=== PATIENT | female | born 1940 | race Caucasian/White ===

== ENCOUNTER → 2018-01-07 15:28 | Outpatient (CLI) | payer MEDICARE, SELFPAY ==
[2018-01-07 16:40] LABS: Hematocrit 40.1 % (36-46); Hemoglobin 13.9 g/dL (12.0-16.0)
[2018-01-07 16:51] LABS: BUN Creatinine Ratio 26.7 (6-22); Blood Urea Nitrogen 24 mg/dL (7-17); Calcium 9.9 mg/dL (8.4-10.2); Carbon Dioxide 27 mmol/L (22-32); Chloride 100 mmol/L (98-107); Estimated Glomerular Filt Rate > 60.0 mL/min (>60); Glucose 108 mg/dL (80-110); HEMOLYSIS < 15 (0-50); Potassium 3.7 mmol/L (3.4-5.1); Sodium 141 mmol/L (137-145)
[2018-01-07 19:27] LABS: Creatinine Urine Random 37.6 mg/dL; Protein (Total) Urine Random 47 mg/dL (0-12); Protein Creatinine Ratio Urine 1.25 GRAM/24H
[2018-01-09 15:13] LABS: Parathyroid Hormone Int 49 pg/mL (14-64)
== END ==
PROVIDERS: PCP Family Medicine; Visit Provider Student in an Organized Health Care Education/Training Program
DX: N05.9 Unspecified nephritic syndrome with unspecified morphologic changes (principal); D64.9 Anemia, unspecified; N25.81 Secondary hyperparathyroidism of renal origin; R80.9 Proteinuria, unspecified
CPT/HCPCS: 36415; 80048; 82570; 83970; 84156; 85014; 85018

== ENCOUNTER → 2018-01-08 09:08 | Outpatient (CLI) | payer MEDICARE, SELFPAY ==
[2018-01-08 15:19] LABS: Bacteria Urine None Seen; RBC Urine None Seen (0-5/HPF); WBC Urine None Seen (0-5/HPF)
[2018-01-08 15:31] LABS: Appearance Urine UA CLEAR; Bilirubin Urine UA NEGATIVE (NEGATIVE); Color Urine UA YELLOW; Glucose Urine UA NEGATIVE (Normal); Ketones Urine UA NEGATIVE (NEGATIVE); Leukocyte Esterase Urine UA NEGATIVE (NEGATIVE); Nitrite Urine UA Negative (Negative); Occult Blood Urine UA NEGATIVE (Negative); Protein Urine UA 1+ (Negative); Urobilinogen Urine UA 0.2 E.U./dL (0.2); pH Urine UA 5.5 (4.5-8.0)
[2018-01-08 15:43] LABS: Culture Indicated Urine Cult Not Indicated; Urine Comments Microscopic Normal
== END ==
PROVIDERS: PCP Family Medicine; Visit Provider Family Medicine
DX: A04.72 Enterocolitis due to Clostridium difficile, not specified as recurrent (principal); Z87.440 Personal history of urinary (tract) infections
CPT/HCPCS: 81001; 87493

== ENCOUNTER → 2018-01-22 10:58 | Outpatient (CLI) | payer MEDICARE, SELFPAY | PROVIDERS: PCP Family Medicine; Visit Provider Nurse Practitioner Family | DX: R19.7 Diarrhea, unspecified (principal); Z53.9 Procedure and treatment not carried out, unspecified reason | CPT/HCPCS: 87493 ==

== ENCOUNTER → 2018-01-28 10:44 | Outpatient (CLI) | payer MEDICARE, SELFPAY ==
--- NOTE | 2018-01-28 | DI.RAD.S_ITS ---
PROCEDURE: FL BARIUM SWALLOW INDICATIONS: WITH TABLET PILL DYSPHAGIA EPIGASTRIC PAIN COMPARISON: [facility], , BARIUM SWALLOW, 08/14/2017, 14:29. FINDINGS: Function: There is normal esophageal peristalsis. No elicited gastroesophageal reflux but there was a single episode of mild spontaneous gastroesophageal reflux. There is normal transit of a calibrated barium tablet through the esophagus into the stomach. Morphology: Air-contrast images demonstrate normal mucosal morphology. Single contrast views show no esophageal strictures, extrinsic mass effects, or diverticula. Limited images of the stomach demonstrate normal appearance. Incidental note is made of several small duodenal diverticula projecting from the transverse duodenum, showing no sign of retention of debris or inflammation. IMPRESSION: Recent hiatal hernia repair, surgical clips seen at the EG junction. Mild gastroesophageal reflux was observed at one point during the examination. Incidental note is made of several duodenal diverticula projecting from the transverse duodenum, without evidence of adjacent inflammation. Dictated by: Alfredo Modi M.D. on 01/28/2018 at 13:29 Approved by: Alfredo Modi M.D. on 01/28/2018 at 13:31
== END ==
PROVIDERS: Family Provider Nurse Practitioner Family; PCP Family Medicine; Visit Provider Family Medicine
DX: R13.10 Dysphagia, unspecified (principal); K21.9 Gastro-esophageal reflux disease without esophagitis
CPT/HCPCS: 74220

== ENCOUNTER 2018-02-15 23:07 | Emergency (ER) | payer MEDICARE, SELFPAY ==
[2018-02-15 23:11] VITALS: BP 183/89; PULSE 70; RESP 16; TEMP 37; O2SAT 98; BMI 24.3
--- NOTE | 2018-02-15 23:22 | DI.RAD.S_ITS ---
PROCEDURE: XR CHEST 1V INDICATIONS: HTN TECHNIQUE: One view of the chest was acquired. COMPARISON: None. FINDINGS: Surgical changes and devices: None. Lungs and pleura: No pleural effusions or pneumothorax. Scarring/atelectasis. No acute disease. Mediastinum: Mediastinal contours appear normal. Heart size is normal. Bones and chest wall: No suspicious bony lesions. Overlying soft tissues appear unremarkable. Lateral curvature of the spine. IMPRESSION: No acute consolidation. Scattered scarring/atelectasis Dictated by: Benjamin Grant M.D. on 02/16/2018 at 8:06 Approved by: Benjamin Grant M.D. on 02/16/2018 at 8:07
[2018-02-15 23:52] LABS: Add Manual Diff / Slide Review NO; Basophils Percent Auto 0.6 % (0-2); Eosinophils Percent Auto 2.4 % (2-4); Hematocrit 37.4 % (36-46); Hemoglobin 12.9 g/dL (12.0-16.0); Lymphocytes Percent Auto 11.7 % (25-40); Mean Corpuscular HGB Conc 34.3 % (30-36); Mean Corpuscular Hemoglobin 32.4 PG (26-34); Mean Corpuscular Volume 94.3 fL (80-100); Monocytes Percent Auto 12.2 % (3-14); Neutrophils Absolute Auto 6900 /uL (3000-5900); Neutrophils Percent Auto 73.1 % (50-75); Platelet Count 242 X10^3/uL (150-400); Red Blood Cell Count 3.97 X10^6/uL (4.0-5.2); Red Cell Distribution Width 12.8 % (11.6-14.8); White Blood Cell Count 9.4 X10^3/uL (4.5-11.0)
[2018-02-15] MEDS: ASPIRIN 81 MG TAB 324 MG PO (23:54)
[2018-02-15] MEDS: SODIUM CHLORIDE 0.9% 1,000 ML 150 ML IV (23:54)
[2018-02-16] VITALS: BP 184/70; PULSE 64; RESP 13; O2SAT 98
[2018-02-16 00:01] LABS: Alanine Aminotransferase 26 IU/L (9-52); Albumin 3.9 g/dL (3.5-5.0); Albumin Globulin Ratio 1.1 (1.0-2.8); Alkaline Phosphatase 110 U/L (38-126); Aspartate Aminotransferase 26 IU/L (14-36); BUN Creatinine Ratio 21.1 (6-22); Bilirubin Total 0.5 mg/dL (0.2-1.3); Blood Urea Nitrogen 19 mg/dL (7-17); Calcium 9.5 mg/dL (8.4-10.2); Carbon Dioxide 25 mmol/L (22-32); Chloride 103 mmol/L (98-107); Creatine Kinase 46 U/L (30-135); Estimated Glomerular Filt Rate > 60.0 mL/min (>60); Globulin 3.5 g/dL (1.7-4.1); Glucose 98 mg/dL (80-110); HEMOLYSIS < 15 (0-50); Lipase 277 U/L (23-300); Potassium 3.3 mmol/L (3.4-5.1); Sodium 140 mmol/L (137-145); Total Protein 7.4 g/dL (6.3-8.2)
--- NOTE | 2018-02-16 00:09 | DI.CT.S_ITS ---
PROCEDURE: CT HEAD/BRAIN WO CON INDICATIONS: OLMEDO, HTN TECHNIQUE: Noncontrast 4.5 mm thick angled axial sections acquired from the foramen magnum to the vertex, with coronal and sagittal reformats. For radiation dose reduction, the following was used: automated exposure control, adjustment of mA and/or kV according to patient size. COMPARISON: None. FINDINGS: Image quality: Excellent. CSF spaces: Basal cisterns are patent. No extra-axial fluid collections. The ventricles are symmetric in size and shape. Brain: No intracranial bleeds or masses. There is cerebral volume loss for age, with resultant ventricular and sulcal prominence. There are periventricular and deep white matter chronic small vessel ischemic changes. There is intracranial internal carotid artery atherosclerosis. Skull and face: No calvarial fracture. Age-indeterminate bilateral nasal bone fractures. Sinuses: Visualized sinuses and mastoids are clear. IMPRESSION: No acute intracranial process. Age indeterminate bilateral nasal bone fractures. Dictated by: Benjamin Grant M.D. on 02/16/2018 at 8:03 Approved by: Benjamin Grant M.D. on 02/16/2018 at 8:06
[2018-02-16 00:15] LABS: Troponin I < 0.012 ng/mL (0.01-0.034)
[2018-02-16] MEDS: LABETALOL 20 MG/4 ML SYRINGE 10 MG IV (00:34)
[2018-02-16 00:37] LABS: Erythrocyte Sedimentation Rate 34 MM/HR (0-20)
[2018-02-16 00:52] LABS: Bacteria Urine Many (>30); RBC Urine 0-1/HPF (0-5/HPF); Squamous Epithelial Cell Urine 0-1 /HPF; WBC Urine 5-10/HPF (0-5/HPF)
[2018-02-16 00:53] LABS: Culture Indicated Urine Specimen Cultured
[2018-02-16 01:15] VITALS: BP 157/70; PULSE 66
[2018-02-16 01:17] VITALS: BP 157/70; PULSE 68; RESP 17; O2SAT 97
--- NOTE | 2018-02-16 01:42 | ED_ITS ---
HPI - Altered Mental Status General Chief Complaint: Altered Mental Status Stated Complaint: states high blood pressure/headache for 4 days Time Seen by Provider: 02/15/18 23:21 Source: patient and family Mode of arrival: ambulatory Limitations: no limitations History of Present Illness HPI narrative: Patient presents to the emergency department this evening with a chief complaint of a headache for the past few days and elevated blood pressure for the past few months. She states that she has had trouble taking her blood pressure medications as prescribed because she has had a sore esophagus. She saw GI at [facility] in November and had a scope noting esophagitis. She states that by and large she feels better and is doing better about taking her blood pressure meds. She states she has been a bit foggy or confused for the past few days but denies any specific focal neurologic symptoms such as blurred vision, trouble with speech, or numbness, weakness or tingling of extremities MD complaint: confusion Onset (ago): week(s) Timing confirmed by: family member Severity: mild Context: change in medication Associated symptoms: headaches Related Data Home Medications Medication Instructions Recorded Confirmed hydralazine 25 mg PO QDAY #0 12/13/16 omeprazole magnesium [Prilosec OTC] 20 mg PO BID #0 10/22/17 Previous Rx's Medication Instructions Recorded metoprolol tartrate 50 mg PO BID #180 tab 07/30/17 atorvastatin 40 mg PO QPM #90 tab 10/16/17 isosorbide mononitrate 60 mg PO BID #180 tab 10/31/17 sulfamethoxazole-trimethoprim 1 tab PO BID #14 tab 11/06/17 vancomycin 125 mg PO QID #40 cap 11/15/17 potassium chloride 10 meq PO BID #60 tab 11/27/17 sertraline [Zoloft] 50 mg PO QDAY #90 tab 11/27/17 tizanidine 4 mg capsule 4 mg PO TIDP PRN #45 cap 12/25/17 losartan 50 mg tablet 100 mg PO QDAY #30 tab 02/11/18 cephalexin [Keflex] 500 mg PO QID 7 Days #28 cap 02/16/18 Allergies Allergy/AdvReac Type Severity Reaction Status Date / Time morphine [MORPHINE] Allergy Unknown Verified 02/15/18 23:18 oxycodone [OXYCODONE] Allergy Unknown Verified 02/15/18 23:18 hydromorphone [From DILAUDID] AdvReac Unknown Verified 02/15/18 23:18 Review of Systems Review of Systems All systems reviewed & are unremarkable except as noted in HPI and below Constitutional Denies chills, Denies fever(s), Reports headache(s), Denies lethargy and Denies weakness Eyes Denies change in vision, Denies eye discharge, Denies irritation and Denies loss of vision ENT Ears, Nose, Mouth, and Throat: Denies change in voice, Reports headache(s), Denies neck pain and Denies sore throat Cardiovascular Denies chest pain, Denies irregular heart rhythm, Denies lightheadedness, Denies palpitations, Denies dyspnea, Denies dyspnea on exertion and Denies orthopnea Respiratory Denies cough, Denies dyspnea, Denies dyspnea on exertion and Denies wheezing Gastrointestinal Gastrointestinal: Denies abdominal pain, Denies change in bowel habits, Denies diarrhea, Denies nausea and Denies vomiting Genitourinary Denies hematuria, Denies flank pain, Denies urinary incontinence and Denies urinary urgency Musculoskeletal Denies neck pain Integumentary/Breasts Denies pruritus, Denies erythema, Denies rash and Denies wounds Neurologic Reports confusion, Reports headache(s), Denies loss of vision and Denies weakness Psychiatric Denies anxiety, Reports confusion, Denies depression, Denies homicidal ideation and Denies suicidal ideation Endocrine Denies palpitations Hematologic/Lymphatic Denies easy bruising Allergic/Immunologic Denies wheezing Exam Initial Vital Signs Initial Vital Signs: Vital Signs Temperature 98.6 F 02/15/18 23:11 Pulse Rate 70 02/15/18 23:11 Respiratory Rate 16 02/15/18 23:11 Blood Pressure 183/89 H 02/15/18 23:11 Pulse Oximetry 98 02/15/18 23:11 Const General: cooperative and well developed Nutritional Appearance: well nourished Orientation: alert, awake, oriented x3 and not confused [facility] Head: normocephalic and atraumatic Ears: external ears normal and TM's normal bilaterally Nose: external nose normal and No nasal discharge Face and sinus: sinuses nontender, face symmetric, no sinus tenderness and No dry mucous membranes Mouth: oral mucosae normal and moist mucous membranes Teeth and gingiva: dentition normal Throat: tonsils normal and uvula midline Eyes General: appearance normal, both eyes and all related structures Eyelids: eyelids normal Conjunctivae: conjunctivae normal Sclera: sclerae normal Pupils: PERRL EOM: EOM intact bilaterally Neck Neck: normal visual inspection, trachea midline, No lymphadenopathy, No midline deformity and No JVD Lymphatic: No lymphedema Chest Chest: normal inspection of the chest Resp Effort & Inspection: normal respiratory effort, able to speak in complete sentences, no respiratory distress and no use of accessory muscles Auscultation: clear to auscultation bilaterally, no rales, no rhonchi and no wheezes Cardio Rate: regular rate Rhythm: regular rhythm Heart Sounds: no click, no gallops, no murmurs and no rubs Pulses: normal peripheral pulses GI Inspection: non-distended Palpation: soft, no hepatosplenomegaly, No guarding, No pulsatile mass and No tender Auscultation: normal bowel sounds Back/Spine/Pelvis Back: No CVA tenderness Cervical Spine: cervical ROM normal and No pain with cervical ROM Thoracic/Lumbar Spine: thoracic and lumbar spine normal to inspection Skin General: no rashes or lesions noted, No jaundice and No petechiae Neuro General: alert, oriented x3, gait normal and no focal motor deficits Speech: speech normal Extrem General: full ROM, no clubbing, cyanosis or edema, no pedal edema and no calf tenderness Psych Appearance: well kempt Mental Status: mental status grossly normal Attitude: cooperative Thought Content: normal and suicidality Judgment: judgment good Course Orders Ordered: ED Orders 02/15/18 23:22 XR chest 1V Stat EKG-12 Lead Stat 02/15/18 23:30 Complete Blood Count AUTO DIFF Stat Comprehensive Metabolic Panel Stat Lipase Stat Troponin & CK Cardiac Panel Stat 02/16/18 00:09 CT head/brain wo con Stat Erythrocyte Sedimentation Rate Stat 02/16/18 00:20 Urine Culture Stat Urine Microscopic Stat Discontinued Medications Aspirin (Aspirin Chew) 324 mg PO NOW ONE Stop: 02/15/18 23:23 Last Admin: 02/15/18 23:54 Dose: 324 mg Cefazolin Sodium (Keflex) 1 bottle MISC SEEINSTR ONE Stop: 02/16/18 01:44 Last Admin: 02/16/18 02:00 Dose: 500 mg Sodium Chloride (Normal Saline 0.9%) 1,000 mls @ 150 mls/hr IV CONT ALE Last Infusion: 02/16/18 02:13 Dose: 0 mls/hr Admin: 02/15/18 23:54 Dose: 150 mls/hr Labetalol HCl (Trandate) 10 mg IV NOW ONE Stop: 02/16/18 00:10 Last Admin: 02/16/18 00:34 Dose: 10 mg Vital Signs - 8 hr 02/15/18 23:11 02/16/18 00:00 02/16/18 01:15 Temperature 98.6 F Pulse Rate 70 64 66 Respiratory Rate 16 13 Blood Pressure 183/89 H 157/70 H Blood Pressure [Left Arm] 184/70 H Pulse Oximetry 98 98 02/16/18 01:17 02/16/18 01:45 02/16/18 01:56 Temperature Pulse Rate 68 67 69 Respiratory Rate 17 11 L 14 Blood Pressure Blood Pressure [Left Arm] 157/70 H 171/77 H 171/77 H Pulse Oximetry 97 95 94 MDM - Altered Mental Status Lab Data Result diagrams: 02/15/18 23:30 02/15/18 23:30 Lab Results 02/15/18 02/15/18 02/15/18 Range/Units 23:30 23:30 23:30 WBC 9.4 (4.5-11.0) X10^3/uL RBC 3.97 L (4.0-5.2) X10^6/uL Hgb 12.9 (12.0-16.0) g/dL Hct 37.4 (36-46) % MCV 94.3 (80-100) fL MCH 32.4 (26-34) PG MCHC 34.3 (30-36) % RDW 12.8 (11.6-14.8) % Plt Count 242 (150-400) X10^3/uL Neut % (Auto) 73.1 (50-75) % Lymph % (Auto) 11.7 L (25-40) % [place] % (Auto) 12.2 (3-14) % Eos % (Auto) 2.4 (2-4) % Baso % (Auto) 0.6 (0-2) % Neut # (Auto) 6900 H (8965-4135) /uL ESR 34 H (0-20) MM/HR Sodium 140 (137-145) mmol/L Potassium 3.3 L (3.4-5.1) mmol/L Chloride 103 (98-107) mmol/L Carbon Dioxide 25 (22-32) mmol/L BUN 19 H (7-17) mg/dL Creatinine 0.90 (0.52-1.04) mg/dL Estimated GFR > 60.0 (>60) mL/min BUN/Creatinine Ratio 21.1 (6-22) Glucose 98 (80-110) mg/dL Calcium 9.5 (8.4-10.2) mg/dL Total Bilirubin 0.5 (0.2-1.3) mg/dL AST 26 (14-36) IU/L ALT 26 (9-52) IU/L Alkaline Phosphatase 110 (38-126) U/L Total Creatine Kinase 46 (30-135) U/L Troponin I < 0.012 (0.01-0.034) ng/mL Total Protein 7.4 (6.3-8.2) g/dL Albumin 3.9 (3.5-5.0) g/dL Globulin 3.5 (1.7-4.1) g/dL Albumin/Globulin Ratio 1.1 (1.0-2.8) Lipase 277 (23-300) U/L Urine RBC (0-5/HPF) Urine WBC (0-5/HPF) Ur Squamous Epith Cells Urine Bacteria (None) Ur Culture Indicated? Micro UA Comment 02/16/18 Range/Units 00:20 WBC (4.5-11.0) X10^3/uL RBC (4.0-5.2) X10^6/uL Hgb (12.0-16.0) g/dL Hct (36-46) % MCV (80-100) fL MCH (26-34) PG MCHC (30-36) % RDW (11.6-14.8) % Plt Count (150-400) X10^3/uL Neut % (Auto) (50-75) % Lymph % (Auto) (25-40) % [place] % (Auto) (3-14) % Eos % (Auto) (2-4) % Baso % (Auto) (0-2) % Neut # (Auto) (7076-4153) /uL ESR (0-20) MM/HR Sodium (137-145) mmol/L Potassium (3.4-5.1) mmol/L Chloride (98-107) mmol/L Carbon Dioxide (22-32) mmol/L BUN (7-17) mg/dL Creatinine (0.52-1.04) mg/dL Estimated GFR (>60) mL/min BUN/Creatinine Ratio (6-22) Glucose (80-110) mg/dL Calcium (8.4-10.2) mg/dL Total Bilirubin (0.2-1.3) mg/dL AST (14-36) IU/L ALT (9-52) IU/L Alkaline Phosphatase (38-126) U/L Total Creatine Kinase (30-135) U/L Troponin I (0.01-0.034) ng/mL Total Protein (6.3-8.2) g/dL Albumin (3.5-5.0) g/dL Globulin (1.7-4.1) g/dL Albumin/Globulin Ratio (1.0-2.8) Lipase (23-300) U/L Urine RBC 0-1/hpf (0-5/HPF) Urine WBC 5-10/hpf H (0-5/HPF) Ur Squamous Epith Cells 0-1 /hpf Urine Bacteria Many (>30) H (None) Ur Culture Indicated? Specimen cultured Micro UA Comment Not Reportable Discharge Plan Departure Patient Disposition: Home, Self-Care Clinical Impression: Essential hypertension, Acute UTI Discharge Date/Time: 02/16/18 02:14 Interventions: ED Discharge Assessment Last Done: 02/16/18 02:14 Instructions: High Blood Pressure, DI for Urinary Tract Infection (UTI) Activity Restrictions/Additional Instructions: *You have been diagnosed with [ hypertension and urinary tract infection ] *What to do: *Take medications as directed, your prescription has been electronically [facility] to [facility] at [facility] request *Follow up with your primary care provider in 2-3 days *Return to ER if you should have any new, worsening or concerning symptoms Prescriptions: New cephalexin [Keflex] 500 mg capsule 500 mg PO QID 7 Days Qty: 28 RF: 0 No Action hydralazine 25 MG tablet 25 mg PO QDAY Qty: 0 RF: 0 metoprolol tartrate 50 MG tablet 50 mg PO BID Qty: 180 RF: 0 atorvastatin 40 MG tablet 40 mg PO QPM Qty: 90 RF: 0 omeprazole magnesium [Prilosec OTC] 20 MG tablet,delayed release (DR/EC) 20 mg PO BID Qty: 0 RF: 0 isosorbide mononitrate 60 MG tablet extended release 24 hr 60 mg PO BID Qty: 180 RF: 0 sulfamethoxazole-trimethoprim 800 MG/160 MG tablet 1 tab PO BID Qty: 14 RF: 0 vancomycin 125 MG capsule 125 mg PO QID Qty: 40 RF: 0 potassium chloride 10 MEQ tablet extended release 10 meq PO BID Qty: 60 RF: 5 sertraline [Zoloft] 50 MG tablet 50 mg PO QDAY Qty: 90 RF: 0 tizanidine [Zanaflex] 4 mg capsule 4 mg PO TIDP PRN (Reason: muscle spasticity) Qty: 45 RF: 0 losartan 50 mg tablet 100 mg PO QDAY Qty: 30 RF: 5 Referrals: Pippa Calderon DO [Primary Care Provider] -
[2018-02-16 01:45] VITALS: BP 171/77; PULSE 67; RESP 11; O2SAT 95
[2018-02-16 01:56] VITALS: BP 171/77; PULSE 69; RESP 14; O2SAT 94
[2018-02-16] MEDS: cephALEXin 250 MG PREPACK 1 BOTTLE MISC (02:00)
== END 2018-02-16 02:14 | disposition home or self-care (01) ==
PROVIDERS: Emergency Provider Emergency Medicine; Family Provider Nurse Practitioner Family; PCP Family Medicine
DX: N39.0 Urinary tract infection, site not specified (principal); I10 Essential (primary) hypertension
CPT/HCPCS: 36591; 70450; 71045; 80053; 81003; 81015; 82550; 82553; 83690; 84484; 85025; 85651; 87077; 87086; 87186; 93005; 96361; 96374; 99283; 99285

== ENCOUNTER 2018-04-09 07:04 | Day surgery (SDC) | payer MEDICARE, SELFPAY ==
[2018-04-09] MEDS: PROPARACAINE 0.5% OPHTH SOL 2 DROPS EYE-OP (07:25)
--- NOTE | 2018-04-09 07:30 | SUR.PREOP ---
pt arrived late and then had to tqake off multiple pieces of jewlry and bag up valuables
[2018-04-09 07:31] VITALS: BP 187/87; PULSE 66; RESP 16; TEMP 36.6; O2SAT 95; BMI 24.7
--- NOTE | 2018-04-09 07:46 | PM.PREOP ---
Pre-operative Note Interval Note Pre-op Check: Yes History & Physical Reviewed by Physician Changes: No
--- NOTE | 2018-04-09 07:49 | PM.OP.1 ---
Operative Date/Time/Diagnoses Date of procedure: 04/09/18 Time of procedure: 05:50 Procedure & Clinicians Procedure: Date of service: [] Preoperative diagnoses: 1. Right [] Cataract Postoperative diagnoses: 1. Cataract [] Procedure: Phacoemulsification with posterior chamber intraocular lens implant Surgeon: Carmen Mcfarland MD Complications: [] Specimen: None Implant: [] Blood loss: None Anesthesia: Retrobulbar with monitored standby Anesthesiologist: [Jarocho Diamond Description of procedure: Patient is a female year old with decreased vision due to cataract which is affecting activities of daily living. She wants surgery to improve vision. She was taken to the operating room and given IV sedation. A retrobulbar block insert consisting of 6 cc of 2% xylocaine without epinephrine mixed half and half with 0.5% Marcaine with 1 cc of hyaluronidase added is placed between the medial and lateral 1/3 of the inferior orbital rim. Lid akinesia is obtain with 1% xylocaine with epinephrine infiltrated along the lid margin. The eye is manually massaged for 30 sec, prepped using Betadine solution, and draped in the usual sterile fashion. Temporal approach was made, a 1 mm side-port incision was made at the 7:30 position. Phenylephrine 1.5% mixed with 1% xylocaine 0.2 cc was placed into the anterior chamber. Viscoat followed by Tomeka was then placed. A 2.6 mm clear incision with a 2.6 mm blade was placed at the 170 degree meridian. A 360 degree capsulorrhexis style capsulotomy was then performed with a cystitome needle on a Healon. Hydrodelineation and hydrodissection were performed. The phacoemulsification unit is introduced, and sculpting notice used to groove the central lens. It is then removed in chopping mode. Epi nucleus is removed with epinuclear mode and irrigation aspiration was used to remove the peripheral cortex. The posterior capsule is polished. The intraocular lens is selected, inspected, power confirmed, and placed in the posterior chamber. The pupil [] constricted. The wound was strongly hydrated and tested for leaks, there was none [] left sutureless. Vigamox 0.1 cc was placed into the anterior chamber. Kenalog 0.2 cc was placed in the superior subconjunctival space. A drop of antibiotic and was placed and the eye was patched and shielded. The patient was stable and returned to the recovery room in excellent condition. Dictated by: Carmen Mcfarland MD Copy to: [facility]
[2018-04-09] MEDS: CATARACT EYE COMPOUND (10 DROPS/SYRINGE) 3 DROPS EYE-OP (07:54)
[2018-04-09] MEDS: METOPROLOL 50 MG TABLET PO (08:10)
[2018-04-09] MEDS: LIDOCAINE 2% 4 ML, BUPIVACAINE 0.5% (PF) 4 ML, HYALURONIDASE 150 UNIT INJ (08:19)
[2018-04-09] MEDS: LIDOCAINE 1% W/EPI INJ 20 ML INJ (08:19)
[2018-04-09] MEDS: CARBACHOL 1.5 ML VIAL INJ (08:38)
[2018-04-09] MEDS: BALANCED SALT IRRIG SOLN NO.2 15 ML IRRIG.SOLN IRR (08:38)
[2018-04-09] MEDS: CHONDROIDTIN/SOD HYALURONATE 1.05 ML SYRINGE INTRAOCULA (08:39)
[2018-04-09] MEDS: HYALURONATE SODIUM 10 MG/ML SYRINGE INJ (08:39)
[2018-04-09] MEDS: MOXIFLOXACIN OPHTH DROPS 3 ML BOTTLE 2 DROPS INJ (08:40)
[2018-04-09] MEDS: NEOMYCIN/POLY/DEX OPHTH OINT 1 APPLIC EYE-RIGHT (08:41)
[2018-04-09] MEDS: BALANCED SALT IRRIG SOLN NO.2 500 ML, EPINEPHrine 1 MG IRR (08:42)
[2018-04-09] MEDS: PHENYLEPHRINE/LIDOCAINE VIAL (OR) 0.2 ML EYE-OP (08:42)
[2018-04-09] MEDS: TRIAMCINOLONE 50 MG/5 ML VIAL INJ (08:42)
[2018-04-09] MEDS: OFLOXACIN 0.3% OPHTH 5 ML 2 DROPS EYE-RIGHT (08:46)
[2018-04-09 09:05] VITALS: BP 185/84; PULSE 63; RESP 16; TEMP 36.2; O2SAT 99
--- NOTE | 2018-04-09 14:40 | PM.OP.1 ---
Operative Date/Time/Diagnoses Date of procedure: 04/09/18 Time of procedure: 08:11 Procedure & Clinicians Procedure: Date of service: April 09, 2018 Preoperative diagnoses: 1. Right nuclear sclerotic cataract. 2. Uncontrolled hypertension 3. Heart murmur 4. Anxiety Postoperative diagnoses: 1. Cataract removal with phacoemulsification and posterior chamber intraocular lens implant placed. Procedure: Phacoemulsification with posterior chamber intraocular lens implant Surgeon: Carmen Mcfarland MD Complications: None Specimen: None Implant: ZCBOO+22.0 Blood loss: None Anesthesia: Retrobulbar with monitored standby Anesthesiologist: Adi Ivan M.D. Description of procedure: Patient is a female year old with decreased vision due to cataract which is affecting activities of daily living. She wants surgery to improve vision. Her blood pressure is significantly elevated preoperatively and she did not take her beta shayna for the last 2 days. The surgery was delayed while she was given medication of metoprolol. Her blood pressure was monitored carefully during surgery. She was taken to the operating room and given IV sedation. A retrobulbar block insert consisting of 6 cc of 2% xylocaine without epinephrine mixed half and half with 0.5% Marcaine with 1 cc of hyaluronidase added is placed between the medial and lateral 1/3 of the inferior orbital rim. Lid akinesia is obtain with 1% xylocaine with epinephrine infiltrated along the lid margin. The eye is manually massaged for 30 sec, prepped using Betadine solution, and draped in the usual sterile fashion. Temporal approach was made, a 1 mm side-port incision was made at the 7:30 position. Phenylephrine 1.5% mixed with 1% xylocaine 0.2 cc was placed into the anterior chamber. Viscoat followed by Tomeka was then placed. A 2.6 mm clear incision with a 2.6 mm blade was placed at the 170 degree meridian. A 360 degree capsulorrhexis style capsulotomy was then performed with a cystitome needle on a Healon. Hydrodelineation and hydrodissection were performed. The phacoemulsification unit is introduced, and sculpting notice used to groove the central lens. It is then removed in chopping mode. Epi nucleus is removed with epinuclear mode and irrigation aspiration was used to remove the peripheral cortex. The posterior capsule is polished. The intraocular lens is selected, inspected, power confirmed, and placed in the posterior chamber. The pupil was constricted. The wound was strongly hydrated and tested for leaks, there was none and was left sutureless. Vigamox 0.1 cc was placed into the anterior chamber. Kenalog 0.2 cc was placed in the superior subconjunctival space. A drop of antibiotic and was placed and the eye was patched and shielded. The patient was stable and returned to the recovery room in excellent condition. Dictated by: Carmen Mcfarland MD Copy to: [facility] Same procedure as scheduled: Yes
== END 2018-04-09 09:29 | disposition home or self-care (01) ==
PROVIDERS: Family Provider Nurse Practitioner Family; PCP Family Medicine; Visit Provider Ophthalmology
DX: H25.11 Age-related nuclear cataract, right eye (principal); I10 Essential (primary) hypertension; F41.9 Anxiety disorder, unspecified
CPT/HCPCS: J0171; J2250; J2704; J3010; J3301; J3470

== ENCOUNTER → 2018-04-15 15:53 | Outpatient (CLI) | payer MEDICARE, SELFPAY | PROVIDERS: Family Provider Nurse Practitioner Family; PCP Family Medicine; Visit Provider Family Medicine | DX: R30.0 Dysuria (principal) | CPT/HCPCS: 87086 ==

== ENCOUNTER → 2018-04-15 16:18 | Outpatient (CLI) | payer MEDICARE, SELFPAY ==
[2018-04-15 17:32] LABS: BUN Creatinine Ratio 23.6 (6-22); Blood Urea Nitrogen 26 mg/dL (7-17); Calcium 9.9 mg/dL (8.4-10.2); Carbon Dioxide 27 mmol/L (22-32); Chloride 105 mmol/L (98-107); Glucose 81 mg/dL (80-110); HEMOLYSIS < 15 (0-50); Sodium 143 mmol/L (137-145)
== END ==
PROVIDERS: Family Provider Nurse Practitioner Family; PCP Family Medicine; Visit Provider Internal Medicine Cardiovascular Disease
DX: I10 Essential (primary) hypertension (principal)
CPT/HCPCS: 36415; 80048; 87086

== ENCOUNTER 2018-05-21 08:28 | Day surgery (SDC) | payer MEDICARE, SELFPAY ==
--- NOTE | 2018-05-21 07:29 | PM.PREOP ---
Pre-operative Note Interval Note Pre-op Check: Yes History & Physical Reviewed by Physician Changes: No
[2018-05-21] MEDS: PROPARACAINE 0.5% OPHTH SOL 2 DROPS EYE-OP (09:00)
[2018-05-21] MEDS: CATARACT EYE COMPOUND (10 DROPS/SYRINGE) 3 DROPS EYE-OP (09:05)
[2018-05-21 09:07] VITALS: BP 158/81; PULSE 60; RESP 15; TEMP 36.3; O2SAT 98; BMI 24.9
--- NOTE | 2018-05-21 09:49 | SUR.OPER ---
Supine on eye stretcher, head on extension cradle secured with tape. Arms tucked at sides with blanket. Pillow under knees.
[2018-05-21] MEDS: PHENYLEPHRINE/LIDOCAINE VIAL (OR) 0.2 ML EYE-OP (09:50)
[2018-05-21] MEDS: MOXIFLOXACIN OPHTH DROPS 3 ML BOTTLE 2 DROPS INJ (09:52)
[2018-05-21] MEDS: TRIAMCINOLONE 50 MG/5 ML VIAL INJ (09:52)
[2018-05-21] MEDS: BALANCED SALT IRRIG SOLN NO.2 15 ML IRRIG.SOLN IRR (09:53)
[2018-05-21] MEDS: HYALURONATE SODIUM 10 MG/ML SYRINGE INJ (09:53)
[2018-05-21] MEDS: CHONDROIDTIN/SOD HYALURONATE 1.05 ML SYRINGE INTRAOCULA (09:53)
[2018-05-21] MEDS: NEOMYCIN/POLY/DEX OPHTH OINT 1 APPLIC EYE-LEFT (09:54)
[2018-05-21] MEDS: CARBACHOL 1.5 ML VIAL INJ (09:54)
[2018-05-21] MEDS: BALANCED SALT IRRIG SOLN NO.2 500 ML, EPINEPHrine 1 MG IRR (09:55)
[2018-05-21] MEDS: LIDOCAINE 1% W/EPI INJ 20 ML INJ (09:55)
[2018-05-21] MEDS: LIDOCAINE 2% 4 ML, BUPIVACAINE 0.5% (PF) 4 ML, HYALURONIDASE 150 UNIT INJ (09:56)
[2018-05-21] MEDS: OFLOXACIN 0.3% OPHTH 5 ML 2 DROPS EYE-LEFT (09:57)
[2018-05-21 10:32] VITALS: BP 155/72; PULSE 61; RESP 15; TEMP 36.2; O2SAT 99
--- NOTE | 2018-05-21 15:03 | PM.OP.1 ---
Operative Date/Time/Diagnoses Date of procedure: 05/21/18 Time of procedure: 09:45 Procedure & Clinicians Procedure: Date of service: 05/21/2018 Preoperative diagnoses: 1. Nuclear sclerotis and cortical cataract Postoperative diagnoses: 1. Cataract removed with phacoemulsification and posterior chamber IOL. Procedure: Phacoemulsification with posterior chamber intraocular lens implant Surgeon: Carmen Mcfarland MD Complications:none Specimen: None Implant:+25.00, myopic target Blood loss: None Anesthesia: Retrobulbar with monitored standby Anesthesiologist: Mohsen Shearer M.D. Description of procedure: Patient is a 78 year old female with decreased vision due to cataract which is affecting activities of daily living. She wants surgery to improve vision. She was taken to the operating room and given IV sedation. A retrobulbar block consisting of 6 cc of 2% xylocaine without epinephrine mixed half and half with 0.5% Marcaine with 1 cc of hyaluronidase added is placed between the medial and lateral 1/3 of the inferior orbital rim. Lid akinesia is obtain with 1% xylocaine with epinephrine infiltrated along the lid margin. The eye is manually massaged for 30 sec, prepped using Betadine solution, and draped in the usual sterile fashion. Temporal approach was made, a 1 mm side-port incision was made at the 12 oclock meridian. Phenylephrine 1.5% mixed with 1% xylocaine 0.2 cc was placed into the anterior chamber. Viscoat followed by Tomeka was then placed. A 2.6 mm clear incision with a 2.6 mm blade was placed at the 3 oclock meridian. A 360 degree capsulorrhexis style capsulotomy was then performed with a cystitome needle on a Healon. Hydrodelineation and hydrodissection were performed. The phacoemulsification unit is introduced, and sculpting notice used to groove the central lens. It is then removed in chopping mode. Epi nucleus is removed with epinuclear mode and irrigation aspiration was used to remove the peripheral cortex. The posterior capsule is polished. The intraocular lens is selected, inspected, power confirmed, and placed in the posterior chamber. The pupil [] constricted. The wound was stromally hydrated and tested for leaks, there was none and was left sutureless. Vigamox 0.1 cc was placed into the anterior chamber. Kenalog 0.2 cc was placed in the superior subconjunctival space. A drop of antibiotic and was placed and the eye was patched and shielded. The patient was stable and returned to the recovery room in excellent condition. Dictated by: Carmen Mcfarland MD Copy to: [facility]
== END 2018-05-21 10:54 | disposition home or self-care (01) ==
LOC: OR 08:29
PROVIDERS: Family Provider Nurse Practitioner Family; PCP Family Medicine; Visit Provider Ophthalmology
DX: H25.12 Age-related nuclear cataract, left eye (principal); H26.9 Unspecified cataract
CPT/HCPCS: J0171; J2250; J2704; J3301; J3470

== ENCOUNTER → 2018-06-04 14:58 | Outpatient (CLI) | payer MEDICARE, SELFPAY ==
[2018-06-04 15:31] LABS: Hematocrit 40.3 % (36-46); Hemoglobin 13.6 g/dL (12.0-16.0)
[2018-06-04 15:32] LABS: Appearance Urine UA CLEAR; Bilirubin Urine UA NEGATIVE (NEGATIVE); Color Urine UA YELLOW; Glucose Urine UA NEGATIVE (Normal); Ketones Urine UA NEGATIVE (NEGATIVE); Leukocyte Esterase Urine UA TRACE (NEGATIVE); Nitrite Urine UA POSITIVE (Negative); Occult Blood Urine UA TRACE-LYSED (Negative); Protein Urine UA 2+ (Negative); Urobilinogen Urine UA 0.2 E.U./dL (0.2)
[2018-06-04 16:04] LABS: Bacteria Urine Many (>30); Culture Indicated Urine Specimen Cultured; RBC Urine 0-1/HPF (0-5/HPF); Squamous Epithelial Cell Urine 0-1 /HPF; Transitional Epi Cells Urine 0-1/HPF (0-5/HPF); WBC Urine 10-30/HPF (0-5/HPF)
[2018-06-04 17:11] LABS: BUN Creatinine Ratio 31.8 (6-22); Blood Urea Nitrogen 35 mg/dL (7-17); Carbon Dioxide 25 mmol/L (22-32); Chloride 104 mmol/L (98-107); Glucose 82 mg/dL (80-110); HEMOLYSIS < 15 (0-50); Sodium 143 mmol/L (137-145)
[2018-06-04 17:15] LABS: Creatinine Urine Random 74.1 mg/dL; Protein (Total) Urine Random 124 mg/dL (0-12); Protein Creatinine Ratio Urine 1.67 GRAM/24H
[2018-06-07 16:41] LABS: Parathyroid Hormone Int 36 pg/mL (14-64)
== END ==
PROVIDERS: PCP Family Medicine; Visit Provider Student in an Organized Health Care Education/Training Program
DX: N05.9 Unspecified nephritic syndrome with unspecified morphologic changes (principal)
CPT/HCPCS: 36415; 80048; 81001; 82570; 83970; 84156; 85014; 85018; 87077; 87086; 87186

== ENCOUNTER → 2018-07-14 13:41 | Outpatient (CLI) | payer MEDICARE, SELFPAY ==
--- NOTE | 2018-07-14 | DI.MG.S_ITS ---
BILATERAL DIGITAL SCREENING MAMMOGRAM 3D/2D WITH CAD WITH AUGMENTATION: 07/14/2018 CLINICAL: Patient presents for routine screening. S/P bilateral augmentation. Family history of breast cancer. Comparison is made to exams dated: 04/18/2017 mammogram, 04/23/2016 mammogram, and 11/25/2014 mammogram - [facility]. The tissue of both breasts is heterogeneously dense. This may lower the sensitivity of mammography. Current study was also evaluated with a Computer Aided Detection (CAD) system. Bilateral breast implants are stable. No significant masses, calcifications, or other findings are seen in either breast. There has been no significant interval change. IMPRESSION: NEGATIVE There is no mammographic evidence of malignancy. A 1 year screening mammogram is recommended. This exam was interpreted at Station ID: [id number]. NOTE: For mammograms, a report in lay terms will be sent to the patient. Approximately 15% of breast malignancies will not be visualized mammographically. In the management of a palpable breast mass, a negative mammogram must not discourage biopsy of a clinically suspicious lesion. Electronically Signed By: Theo wiggins/gregg:07/15/2018 11:34:41 letter sent: Normal Exam ACR BI-RADS Category 1: Negative [id number]
== END ==
PROVIDERS: Family Provider Nurse Practitioner Family; PCP Family Medicine; Visit Provider Family Medicine
DX: Z12.31 Encounter for screening mammogram for malignant neoplasm of breast (principal); Z80.3 Family history of malignant neoplasm of breast; Z98.82 Breast implant status
CPT/HCPCS: 77063; 77067

== ENCOUNTER → 2018-07-14 14:47 | Outpatient (CLI) | payer MEDICARE, SELFPAY ==
[2018-07-14 15:47] LABS: Appearance Urine UA SL CLOUDY; Bilirubin Urine UA NEGATIVE (NEGATIVE); Color Urine UA YELLOW; Glucose Urine UA NEGATIVE (Normal); Ketones Urine UA NEGATIVE (NEGATIVE); Leukocyte Esterase Urine UA NEGATIVE (NEGATIVE); Nitrite Urine UA NEGATIVE (Negative); Occult Blood Urine UA TRACE-LYSED (Negative); Protein Urine UA 2+ (Negative); Specific Gravity Urine UA 1.025 (1.000-1.035); Urobilinogen Urine UA 0.2 E.U./dL (0.2)
[2018-07-14 16:15] LABS: Bacteria Urine Many (>30); Culture Indicated Urine Specimen Cultured; RBC Urine 0-1/HPF (0-5/HPF); Squamous Epithelial Cell Urine None Seen; WBC Urine 10-30/HPF (0-5/HPF)
== END ==
PROVIDERS: Family Provider Family Medicine; PCP Family Medicine; Visit Provider Student in an Organized Health Care Education/Training Program
DX: N30.00 Acute cystitis without hematuria (principal)
CPT/HCPCS: 81001; 87077; 87086; 87186

== ENCOUNTER 2018-08-06 16:38 | Emergency (ER) | payer MEDICARE, SELFPAY ==
[2018-08-06 16:45] VITALS: BP 223/106; PULSE 76; RESP 19; TEMP 36.6; O2SAT 98; BMI 25.7
--- NOTE | 2018-08-06 17:07 | DI.RAD.S_ITS ---
PROCEDURE: XR CHEST 1V INDICATIONS: chest pain TECHNIQUE: One view of the chest was acquired. COMPARISON: [facility], CR, XR CHEST 1V, 02/16/2018, 1:19. FINDINGS: Surgical changes and devices: None. Lungs and pleura: No pleural effusions or pneumothorax. Lungs are clear. Mediastinum: Mediastinal contours appear normal. Heart size is normal. Bones and chest wall: No suspicious bony lesions. Overlying soft tissues appear unremarkable. IMPRESSION: 1. No acute cardiopulmonary disease. Dictated by: Theo Trinidad M.D. on 08/06/2018 at 16:30 Approved by: Theo Trinidad M.D. on 08/06/2018 at 16:32
[2018-08-06 17:19] LABS: Add Manual Diff / Slide Review NO; Basophils Percent Auto 0.9 % (0-2); Eosinophils Percent Auto 4.7 % (2-4); Hematocrit 41.5 % (36-46); Hemoglobin 14.2 g/dL (12.0-16.0); Lymphocytes Percent Auto 17.7 % (25-40); Mean Corpuscular HGB Conc 34.3 % (30-36); Mean Corpuscular Hemoglobin 32.6 PG (26-34); Mean Corpuscular Volume 95.2 fL (80-100); Neutrophils Absolute Auto 4400 /uL (1500-7000); Neutrophils Percent Auto 64.7 % (50-75); Platelet Count 237 X10^3/uL (150-400); Red Blood Cell Count 4.36 X10^6/uL (4.0-5.2); Red Cell Distribution Width 13.7 % (11.6-14.8); White Blood Cell Count 6.7 X10^3/uL (4.5-11.0)
[2018-08-06 17:27] LABS: INR 0.9 (0.9-1.3); Prothrombin Time 10.2 SECONDS (10.1-12.7)
[2018-08-06 17:30] LABS: PTT Partial Thromboplastin Tim 33 SECONDS (26.4-36.2)
[2018-08-06 17:32] LABS: Alanine Aminotransferase 21 IU/L (9-52); Albumin 4.7 g/dL (3.5-5.0); Albumin Globulin Ratio 1.2 (1.0-2.8); Alkaline Phosphatase 112 U/L (38-126); Aspartate Aminotransferase 44 IU/L (14-36); Bilirubin Total 0.8 mg/dL (0.2-1.3); Blood Urea Nitrogen 25 mg/dL (7-17); Carbon Dioxide 24 mmol/L (22-32); Chloride 106 mmol/L (98-107); Creatine Kinase 96 U/L (30-135); Estimated Glomerular Filt Rate 53.6 mL/min (>60); Globulin 3.8 g/dL (1.7-4.1); Glucose 86 mg/dL (80-110); HEMOLYSIS 45 (0-50); Lipase 417 U/L (23-300); Potassium 3.6 mmol/L (3.4-5.1); Sodium 143 mmol/L (137-145); Total Protein 8.5 g/dL (6.3-8.2)
--- NOTE | 2018-08-06 17:32 | ED_ITS ---
HPI - General Adult General Chief complaint: Hypertension Stated complaint: states high blood pressure Time Seen by Provider: 08/06/18 17:12 Related Data Home Medications Medication Instructions Recorded Confirmed chlorthalidone 25 mg tablet 12.5 mg PO DAILY tab 04/15/18 04/15/18 cholecalciferol (vitamin D3) 2,000 2,000 unit PO DAILY 04/15/18 07/31/18 unit capsule hydralazine 25 mg tablet 75 mg PO QDAY #0 tab 04/15/18 04/15/18 losartan 100 mg tablet 100 mg PO DAILY 04/15/18 04/15/18 pantoprazole 20 mg tablet,delayed 20 mg PO BID tab 04/15/18 04/15/18 release diphenhydramine 25 mg capsule 50 mg PO BEDTIME PRN 07/31/18 Previous Rx's Medication Instructions Recorded isosorbide mononitrate 60 mg PO BID #180 tab 10/31/17 potassium chloride 10 meq PO BID #60 tab 11/27/17 fluticasone 50 mcg/actuation nasal 1 spray NASAL BID PRN #18.2 gram 04/15/18 spray,suspension atorvastatin 40 mg tablet 40 mg PO QPM #90 tab 04/21/18 metoprolol tartrate 50 mg PO BID #180 tab 06/17/18 tizanidine 4 mg capsule 4 mg PO TIDP PRN #45 cap 06/25/18 buspirone 5 mg tablet 5 mg PO BID #60 tab 07/31/18 Allergies Allergy/AdvReac Type Severity Reaction Status Date / Time morphine [MORPHINE] Allergy Intermediate rash, Verified 08/06/18 16:49 itching, disorientation oxycodone [OXYCODONE] Allergy Intermediate rash, Verified 08/06/18 16:49 itching, disorientation hydromorphone [From DILAUDID] AdvReac Intermediate rash, Verified 08/06/18 16:49 itching, disorientation [facility] Social History household members: spouse Smoking Status: Never smoker Exam Initial Vital Signs Initial Vital Signs: Vital Signs Temperature 97.8 F 08/06/18 16:45 Pulse Rate 76 08/06/18 16:45 Respiratory Rate 19 08/06/18 16:45 Blood Pressure 223/106 H 08/06/18 16:45 Pulse Oximetry 98 08/06/18 16:45 Course Orders Ordered: ED Orders 08/06/18 17:00 Complete Blood Count AUTO DIFF Stat Comprehensive Metabolic Panel Stat Lipase Stat Partial Thromboplastin Time Stat Prothrombin Time INR Stat Troponin & CK Cardiac Panel Stat 08/06/18 17:07 XR chest 1V Stat EKG-12 Lead Stat Vital Signs - 8 hr 08/06/18 16:45 Temperature 97.8 F Pulse Rate 76 Respiratory Rate 19 Blood Pressure 223/106 H Pulse Oximetry 98 Medical Decision Making Lab Data Result diagrams: 08/06/18 17:00 08/06/18 17:00 Lab Results 08/06/18 08/06/18 Range/Units 17:00 17:00 WBC 6.7 (4.5-11.0) X10^3/uL RBC 4.36 (4.0-5.2) X10^6/uL Hgb 14.2 (12.0-16.0) g/dL Hct 41.5 (36-46) % MCV 95.2 (80-100) fL MCH 32.6 (26-34) PG MCHC 34.3 (30-36) % RDW 13.7 (11.6-14.8) % Plt Count 237 (150-400) X10^3/uL Neut % (Auto) 64.7 (50-75) % Lymph % (Auto) 17.7 L (25-40) % Harris % (Auto) 12.0 (3-14) % Eos % (Auto) 4.7 H (2-4) % Baso % (Auto) 0.9 (0-2) % Neut # (Auto) 4400 (2620-3038) /uL PT 10.2 (10.1-12.7) SECONDS INR 0.9 (0.9-1.3) APTT 33 (26.4-36.2) SECONDS Discharge Plan Departure Prescriptions: No Action chlorthalidone 25 mg tablet 12.5 mg PO DAILY RF: 0 pantoprazole 20 mg tablet,delayed release (DR/EC) 20 mg PO BID RF: 0 cholecalciferol (vitamin D3) 2,000 unit capsule 2,000 unit PO DAILY RF: 0 losartan 100 mg tablet 100 mg PO DAILY RF: 0 fluticasone 50 mcg/actuation spray,suspension 1 spray NASAL BID PRN (Reason: allergy symptoms) Qty: 18.2 RF: 0 diphenhydramine HCl [Allergy (diphenhydramine)] 25 mg capsule 50 mg PO BEDTIME PRNRF: 0 buspirone 5 mg tablet 5 mg PO BID Qty: 60 RF: 1 isosorbide mononitrate 60 MG tablet extended release 24 hr 60 mg PO BID Qty: 180 RF: 0 potassium chloride 10 MEQ tablet extended release 10 meq PO BID Qty: 60 RF: 5 hydralazine 25 mg tablet 75 mg PO QDAY Qty: 0 RF: 0 atorvastatin 40 mg tablet 40 mg PO QPM Qty: 90 RF: 1 metoprolol tartrate 50 mg tablet 50 mg PO BID Qty: 180 RF: 0 tizanidine [Zanaflex] 4 mg capsule 4 mg PO TIDP PRN (Reason: muscle spasticity) Qty: 45 RF: 0
[2018-08-06 17:41] VITALS: BP 234/99; PULSE 76; RESP 18; O2SAT 100
[2018-08-06 17:44] LABS: Troponin I < 0.012 ng/mL (0.01-0.034)
[2018-08-06] MEDS: ONDANSETRON 4 MG/2 ML INJ IV (18:17)
[2018-08-06] MEDS: ISOSORBIDE MONONITRATE ER 30 MG TABLET 60 MG PO (18:23)
[2018-08-06] MEDS: METOPROLOL IR 50 MG TABLET PO (18:24)
[2018-08-06 18:26] VITALS: BP 224/97; PULSE 71
[2018-08-06] MEDS: HYDRALAZINE 25 MG TABLET PO (18:26)
[2018-08-06 19:00] VITALS: BP 206/84; PULSE 80
--- NOTE | 2018-08-06 19:10 | ED_ITS ---
HPI - Nausea/Vomiting/Diarrhea General Chief complaint: Hypertension Stated complaint: states high blood pressure Time Seen by Provider: 08/06/18 17:12 Source: patient Mode of arrival: ambulatory Limitations: no limitations History of Present Illness HPI Narrative: 78-year-old female, nonsmoker with history of hypertension presents to the emergency department with elevated blood pressures noted at home. She has very little in the way of symptoms and denies headache, blurred vision, chest pain, shortness of breath or abdominal pain. She chronically battles nausea as a result of a hiatal hernia and states on occasion because of this nausea she does not take her medications. She has not taken her hypertensive medications today. complaint: nausea Onset (ago): year(s) Severity: mild Relieving factors: none Exacerbating factors: none Associated symptoms: denies other symptoms Related Data Home Medications Medication Instructions Recorded Confirmed chlorthalidone 25 mg tablet 12.5 mg PO DAILY tab 04/15/18 04/15/18 cholecalciferol (vitamin D3) 2,000 2,000 unit PO DAILY 04/15/18 07/31/18 unit capsule hydralazine 25 mg tablet 75 mg PO QDAY #0 tab 04/15/18 04/15/18 losartan 100 mg tablet 100 mg PO DAILY 04/15/18 04/15/18 pantoprazole 20 mg tablet,delayed 20 mg PO BID tab 04/15/18 04/15/18 release diphenhydramine 25 mg capsule 50 mg PO BEDTIME PRN 07/31/18 Previous Rx's Medication Instructions Recorded isosorbide mononitrate 60 mg PO BID #180 tab 10/31/17 potassium chloride 10 meq PO BID #60 tab 11/27/17 fluticasone 50 mcg/actuation nasal 1 spray NASAL BID PRN #18.2 gram 04/15/18 spray,suspension atorvastatin 40 mg tablet 40 mg PO QPM #90 tab 04/21/18 metoprolol tartrate 50 mg PO BID #180 tab 06/17/18 tizanidine 4 mg capsule 4 mg PO TIDP PRN #45 cap 06/25/18 buspirone 5 mg tablet 5 mg PO BID #60 tab 07/31/18 Allergies Allergy/AdvReac Type Severity Reaction Status Date / Time morphine [MORPHINE] Allergy Intermediate rash, Verified 08/06/18 16:49 itching, disorientation oxycodone [OXYCODONE] Allergy Intermediate rash, Verified 08/06/18 16:49 itching, disorientation hydromorphone [From DILAUDID] AdvReac Intermediate rash, Verified 08/06/18 16:49 itching, disorientation Review of Systems Review of Systems All systems reviewed & are unremarkable except as noted in HPI and below Constitutional Denies chills, Denies fever(s), Denies lethargy and Denies weakness Eyes Denies change in vision, Denies eye discharge, Denies irritation and Denies loss of vision ENT Ears, Nose, Mouth, and Throat: Denies change in voice, Denies neck pain and Denies sore throat Cardiovascular Denies chest pain, Denies irregular heart rhythm, Denies lightheadedness, Denies palpitations, Denies dyspnea, Denies dyspnea on exertion and Denies orthopnea Respiratory Denies cough, Denies dyspnea, Denies dyspnea on exertion and Denies wheezing Gastrointestinal Gastrointestinal: Denies abdominal pain, Denies change in bowel habits, Denies diarrhea, Reports nausea and Denies vomiting Genitourinary Denies hematuria, Denies flank pain, Denies urinary incontinence and Denies urinary urgency Musculoskeletal Denies neck pain Integumentary/Breasts Denies pruritus, Denies erythema, Denies rash and Denies wounds Neurologic Denies confusion, Denies loss of vision and Denies weakness Psychiatric Denies anxiety, Denies confusion, Denies depression, Denies homicidal ideation and Denies suicidal ideation Endocrine Denies palpitations Hematologic/Lymphatic Denies easy bruising Allergic/Immunologic Denies wheezing [facility] Medical History Allergic rhinitis (Chronic) Anemia (Chronic) Anxiety (Chronic) CKD (chronic kidney disease) (Chronic) Chronic back pain (Chronic) Chronic cough (Chronic) Depression (Chronic) Fibromyalgia (Chronic) Frequent UTI (Chronic) GERD (gastroesophageal reflux disease) (Chronic) Heart murmur (Chronic) Hemorrhoids (Chronic) Hyperlipemia (Chronic) Hypertension (Chronic) IBS (irritable bowel syndrome) (Chronic) Kidney failure (Chronic) Osteoarthritis (Chronic) Osteopenia (Chronic) Osteoporosis (Chronic) Urinary incontinence (Chronic) Ankle pain (Resolved) Colon polyps (Resolved) Fecal incontinence (Resolved 2014) Foot pain (Resolved) Hiatal hernia (Resolved) Hx of fracture of nose (Resolved) Surgical History History of Renato fundoplication (Resolved 09/2013) History of total abdominal hysterectomy and bilateral salpingo-oophorectomy ( Resolved 1983) Hx of abdominoplasty (Resolved) Hx of breast implants, bilateral (Resolved) Hx of cholecystectomy (Resolved) Hx of lumpectomy (Resolved) Hx of shoulder surgery (Resolved 1995) History of bladder suspension procedure (1997) Family History Brother Age: 81 Sleep apnea Child Age: 59 GERD (gastroesophageal reflux disease) Child Age: 57 Anxiety Father Emphysema lung Grandfather Skin cancer Diabetes mellitus Hypertension Mother Hypertension Stroke Anxiety Sister Age: 61 Hyperthyroidism Grandmother No problems noted. Grandfather No problems noted. Grandmother Cancer Social History household members: spouse Smoking Status: Never smoker Exam Narrative Exam Narrative: GENERAL: This is a well-nourished, well-developed patient, in mild distress. HEAD: Atraumatic. Normocephalic. No temporal or scalp tenderness. EYES: Pupils equal round and reactive. Extraocular motions intact. No scleral icterus. No injection or drainage. ENT: Nose without bleeding, purulent drainage or septal hematoma. Throat without erythema, tonsillar hypertrophy or exudate. Uvula midline. Airway patent. NECK: Trachea midline. No JVD or lymphadenopathy. Supple, nontender, no meningeal signs. CARDIOVASCULAR: Regular rate and rhythm without murmurs, gallops, or rubs. RESPIRATORY: Clear to auscultation. Breath sounds equal bilaterally. No wheezes , rales, or rhonchi. GASTROINTESTINAL: Abdomen soft, non-tender, nondistended. No hepato-splenomegaly , or palpable masses. No guarding. EXTREMITIES: No clubbing, cyanosis, or edema. No joint tenderness, effusion, or edema noted. BACK: Nontender without deformity or crepitance. No flank tenderness. NEURO: AOx3. SKIN: No rash or erythema. NIH Stroke Scale 1a. LOC: Patient is alert and keenly responsive (0) 1b. LOC Questions: Patient answers both LOC questions accurately (0) 1c. LOC Commands: Patient performs both tasks correctly (0) 2. Best Gaze: Normal (0) 3. Visual: No visual loss (0) 4. Facial palsy: Normal symmetrical movements (0) 5. Motor arm: No drift (0) 6. Motor leg: No drift (0) 7. Limb ataxia: Absent (0) 8. Sensory: Normal (0) 9. Best language: No aphasia; normal (0) 10. Dysarthria: Normal (0) 11. Extinction and inattention: No abnormality (0) NIHSS: 0 Initial Vital Signs Initial Vital Signs: Vital Signs Temperature 97.8 F 08/06/18 16:45 Pulse Rate 76 08/06/18 16:45 Respiratory Rate 19 08/06/18 16:45 Blood Pressure 223/106 H 08/06/18 16:45 Pulse Oximetry 98 08/06/18 16:45 Course Orders Ordered: Discontinued Medications Hydralazine HCl (Apresoline) 75 mg PO NOW ONE Stop: 08/06/18 18:08 Last Admin: 08/06/18 18:26 Dose: Not Given Hydralazine HCl (Apresoline) 25 mg PO NOW ONE Stop: 08/06/18 18:25 Last Admin: 08/06/18 18:26 Dose: 25 mg Isosorbide Mononitrate (Imdur) 60 mg PO NOW ONE Stop: 08/06/18 18:09 Last Admin: 08/06/18 18:23 Dose: 60 mg Metoprolol Tartrate (Lopressor) 50 mg PO NOW ONE Stop: 08/06/18 18:10 Last Admin: 08/06/18 18:24 Dose: 50 mg Ondansetron HCl (Zofran) 4 mg IV NOW ONE Stop: 08/06/18 18:12 Last Admin: 08/06/18 18:17 Dose: 4 mg Consultations Consultation #1: patient is given her normal BP meds and her pressures drop about 40 points. She continues to be symptom free. She has no notable lab abnormalities Vital Signs - 8 hr 08/06/18 19:57 Pulse Rate 81 Respiratory Rate 19 Blood Pressure 204/82 H Pulse Oximetry 99 MDM - Nausea/Vomiting/Diarrhea Medical Records Attestation: I reviewed the patient's medical records. Lab Data Attestation: I reviewed the patient's lab results. Result diagrams: 08/06/18 17:00 08/06/18 17:00 Lab Results 08/06/18 08/06/18 08/06/18 Range/Units 17:00 17:00 17:00 WBC 6.7 (4.5-11.0) X10^3/uL RBC 4.36 (4.0-5.2) X10^6/uL Hgb 14.2 (12.0-16.0) g/dL Hct 41.5 (36-46) % MCV 95.2 (80-100) fL MCH 32.6 (26-34) PG MCHC 34.3 (30-36) % RDW 13.7 (11.6-14.8) % Plt Count 237 (150-400) X10^3/uL Neut % (Auto) 64.7 (50-75) % Lymph % (Auto) 17.7 L (25-40) % Burnett % (Auto) 12.0 (3-14) % Eos % (Auto) 4.7 H (2-4) % Baso % (Auto) 0.9 (0-2) % Neut # (Auto) 4400 (3745-0724) /uL PT 10.2 (10.1-12.7) SECONDS INR 0.9 (0.9-1.3) APTT 33 (26.4-36.2) SECONDS Sodium 143 (137-145) mmol/L Potassium 3.6 (3.4-5.1) mmol/L Chloride 106 (98-107) mmol/L Carbon Dioxide 24 (22-32) mmol/L BUN 25 H (7-17) mg/dL Creatinine 1.00 (0.52-1.04) mg/dL Estimated GFR 53.6 L (>60) mL/min BUN/Creatinine Ratio 25.0 H (6-22) Glucose 86 (80-110) mg/dL Calcium 10.0 (8.4-10.2) mg/dL Total Bilirubin 0.8 (0.2-1.3) mg/dL AST 44 H (14-36) IU/L ALT 21 (9-52) IU/L Alkaline Phosphatase 112 (38-126) U/L Total Creatine Kinase 96 (30-135) U/L CK-MB (CK-2) TNP CK-MB (CK-2) Rel Index TNP Troponin I < 0.012 (0.01-0.034) ng/mL Total Protein 8.5 H (6.3-8.2) g/dL Albumin 4.7 (3.5-5.0) g/dL Globulin 3.8 (1.7-4.1) g/dL Albumin/Globulin Ratio 1.2 (1.0-2.8) Lipase 417 H (23-300) U/L Imaging Data Chest x-ray: Radiologist's impression: Diagnostics Reports Cecy Zamudio I 78 F 1940 Allergy/Adv: morphine, oxycodone, hydromorphone CLOSE Chest X-Ray (Signed) Theo Trinidad - 08/06/18 Mammogram Screening (Signed) Theo Trinidad - 07/14/[address] (Signed) Benjamin Grant - 02/16/18 Chest X-Ray (Signed) Benjamin Grant - 02/15/18 Barium Swallow X-Ray (Signed) Alfredo Modi - 01/28/18 Launch Image View Report History [address] [address] XRay Report Signed Patient: Cecy Zamudio I MR#: [id number] : 1940 Acct:[id number] Age/Sex: 78 / F Date of Service: 08/06/18 Loc: ED Accession Number: [id number] Procedure: XR chest 1V Ordering Provider: Nohemy Banks D.O. PROCEDURE: XR CHEST 1V INDICATIONS: chest pain TECHNIQUE: One view of the chest was acquired. COMPARISON: [facility], , XR CHEST 1V, 02/16/2018, 1:19. FINDINGS: Surgical changes and devices: None. Lungs and pleura: No pleural effusions or pneumothorax. Lungs are clear. Mediastinum: Mediastinal contours appear normal. Heart size is normal. Bones and chest wall: No suspicious bony lesions. Overlying soft tissues appear unremarkable. IMPRESSION: 1. No acute cardiopulmonary disease. Dictated by: Theo Trinidad M.D. on 08/06/2018 at 16:30 Approved by: Theo Trinidad M.D. on 08/06/2018 at 16:32 ECG Data Attestation: I personally reviewed and interpreted this ECG as follows: Prior ECG tracings: not available for review Interpretation: EKG is normal sinus rhythm rate [ 70] and free of any signs of ischemia or ectopy. No ST segmental elevation or depression. No T wave inversions Discharge Plan Departure Patient Disposition: Home Clinical Impression: Hypertension, Current non-adherence to medical treatment Discharge Date/Time: 08/06/18 19:58 Interventions: ED Discharge Assessment Last Done: 08/06/18 19:57 Instructions: DI for High Blood Pressure Activity Restrictions/Additional Instructions: *You have been diagnosed with [ hypertension and medical noncompliance ] *What to do: *Take medications as directed *Follow up with your primary care provider in 2-3 days, call for an appointment. Let them know you were seen in the Emergency Department and that we ask that you be seen in follow up *Return to ER if you should have any new, worsening or concerning symptoms Prescriptions: No Action chlorthalidone 25 mg tablet 12.5 mg PO DAILY RF: 0 pantoprazole 20 mg tablet,delayed release (DR/EC) 20 mg PO BID RF: 0 cholecalciferol (vitamin D3) 2,000 unit capsule 2,000 unit PO DAILY RF: 0 losartan 100 mg tablet 100 mg PO DAILY RF: 0 fluticasone 50 mcg/actuation spray,suspension 1 spray NASAL BID PRN (Reason: allergy symptoms) Qty: 18.2 RF: 0 diphenhydramine HCl [Allergy (diphenhydramine)] 25 mg capsule 50 mg PO BEDTIME PRNRF: 0 buspirone 5 mg tablet 5 mg PO BID Qty: 60 RF: 1 isosorbide mononitrate 60 MG tablet extended release 24 hr 60 mg PO BID Qty: 180 RF: 0 potassium chloride 10 MEQ tablet extended release 10 meq PO BID Qty: 60 RF: 5 hydralazine 25 mg tablet 75 mg PO QDAY Qty: 0 RF: 0 atorvastatin 40 mg tablet 40 mg PO QPM Qty: 90 RF: 1 metoprolol tartrate 50 mg tablet 50 mg PO BID Qty: 180 RF: 0 tizanidine [Zanaflex] 4 mg capsule 4 mg PO TIDP PRN (Reason: muscle spasticity) Qty: 45 RF: 0 Referrals: Pippa Calderon DO [Primary Care Provider] - Kena Tejeda MD [Physician] -
[2018-08-06 19:12] VITALS: BP 196/81; PULSE 72; RESP 16; TEMP 36.9; O2SAT 98
[2018-08-06 19:57] VITALS: BP 204/82; PULSE 81; RESP 19; O2SAT 99
== END 2018-08-06 19:58 | disposition home or self-care (01) ==
PROVIDERS: Emergency Medicine; Emergency Provider Emergency Medicine; Family Provider Family Medicine; PCP Family Medicine
DX: I10 Essential (primary) hypertension (principal); Z91.19 Patient's noncompliance with other medical treatment and regimen
CPT/HCPCS: 36591; 71045; 80053; 82550; 83690; 84484; 85025; 85610; 85730; 93005; 96374; 99283; 99285; J2405

== ENCOUNTER 2018-08-07 23:17 | Emergency (ER) | payer MEDICARE, SELFPAY ==
[2018-08-07 23:26] VITALS: BP 219/106; PULSE 89; RESP 15; TEMP 37; O2SAT 96; BMI 25.7
[2018-08-07 23:33] VITALS: BP 174/79; PULSE 80; O2SAT 99
--- NOTE | 2018-08-08 00:04 | PC.NURSE ---
Pt here because her bp is elevated,pt here for same yesterday but hadn't taken her bp meds. pt states that she has been under a lot of stress lately
[2018-08-08 00:13] LABS: Add Manual Diff / Slide Review NO; Basophils Percent Auto 0.8 % (0-2); Eosinophils Percent Auto 4.7 % (2-4); Hematocrit 37.9 % (36-46); Hemoglobin 12.9 g/dL (12.0-16.0); Lymphocytes Percent Auto 22.1 % (25-40); Mean Corpuscular HGB Conc 33.9 % (30-36); Mean Corpuscular Hemoglobin 32.4 PG (26-34); Mean Corpuscular Volume 95.3 fL (80-100); Neutrophils Absolute Auto 3700 /uL (1500-7000); Neutrophils Percent Auto 60.4 % (50-75); Platelet Count 221 X10^3/uL (150-400); Red Blood Cell Count 3.98 X10^6/uL (4.0-5.2); Red Cell Distribution Width 13.3 % (11.6-14.8); White Blood Cell Count 6.1 X10^3/uL (4.5-11.0)
[2018-08-08 00:24] LABS: Alanine Aminotransferase 32 IU/L (9-52); Albumin Globulin Ratio 1.2 (1.0-2.8); Alkaline Phosphatase 91 U/L (38-126); Aspartate Aminotransferase 43 IU/L (14-36); BUN Creatinine Ratio 19.2 (6-22); Bilirubin Total 0.6 mg/dL (0.2-1.3); Blood Urea Nitrogen 23 mg/dL (7-17); Calcium 9.5 mg/dL (8.4-10.2); Carbon Dioxide 26 mmol/L (22-32); Chloride 105 mmol/L (98-107); Creatine Kinase 66 U/L (30-135); Estimated Glomerular Filt Rate 43.4 mL/min (>60); Globulin 3.4 g/dL (1.7-4.1); Glucose 109 mg/dL (80-110); HEMOLYSIS 16 (0-50); Potassium 3.5 mmol/L (3.4-5.1); Sodium 142 mmol/L (137-145); Total Protein 7.4 g/dL (6.3-8.2)
[2018-08-08 00:31] VITALS: BP 185/80; PULSE 73; O2SAT 97
[2018-08-08 00:40] LABS: Troponin I < 0.012 ng/mL (0.01-0.034)
--- NOTE | 2018-08-08 00:45 | ED.GENADULT ---
HPI - General Adult General Chief complaint: Hypertension Stated complaint: NERVOUS BREAKDOWN Time Seen by Provider: 08/07/18 23:50 Source: patient, family and old records reviewed Mode of arrival: ambulatory Limitations: no limitations History of Present Illness HPI narrative: The patient is a 78-year-old female who presents with hypertension and anxiety. She was seen evaluated last night for the same. She had significantly elevated blood pressure last night initially she does here as well with systolic over 200. However it does come down on its own quite quickly. Patient says that she is not able take all of her blood pressure medication she has a history of a Renato fundoplication and when she takes pills she feels like something happens and sometime he starts gagging. That she really has not been able to take her medication as prescribed. She has been on blood pressure medication for a number of years and had the procedure in 2013. She is not always had this problem but it seems to becoming more difficult for her to take medication. She also has been under enormous amount of stress at home. She feels she is very worried about her blood pressure and other things at home. She denies chest pain, headache, nausea, vomiting, vision changes, cough, shortness of breath or any other symptoms. This evening there was also information about 911 not working which she feels like maybe set it off. She has an appointment with her freight trucker August 14. Onset (ago): hour(s) Related Data Home Medications Medication Instructions Recorded Confirmed chlorthalidone 25 mg tablet 12.5 mg PO DAILY tab 04/15/18 04/15/18 cholecalciferol (vitamin D3) 2,000 2,000 unit PO DAILY 04/15/18 07/31/18 unit capsule hydralazine 25 mg tablet 75 mg PO QDAY #0 tab 04/15/18 04/15/18 losartan 100 mg tablet 100 mg PO DAILY 04/15/18 04/15/18 pantoprazole 20 mg tablet,delayed 20 mg PO BID tab 04/15/18 04/15/18 release diphenhydramine 25 mg capsule 50 mg PO BEDTIME PRN 07/31/18 Previous Rx's Medication Instructions Recorded isosorbide mononitrate 60 mg PO BID #180 tab 10/31/17 potassium chloride 10 meq PO BID #60 tab 11/27/17 fluticasone 50 mcg/actuation nasal 1 spray NASAL BID PRN #18.2 gram 04/15/18 spray,suspension atorvastatin 40 mg tablet 40 mg PO QPM #90 tab 04/21/18 metoprolol tartrate 50 mg PO BID #180 tab 06/17/18 tizanidine 4 mg capsule 4 mg PO TIDP PRN #45 cap 06/25/18 buspirone 5 mg tablet 5 mg PO BID #60 tab 07/31/18 Allergies Allergy/AdvReac Type Severity Reaction Status Date / Time morphine [MORPHINE] Allergy Intermediate rash, Verified 08/07/18 23:26 itching, disorientation oxycodone [OXYCODONE] Allergy Intermediate rash, Verified 08/07/18 23:26 itching, disorientation hydromorphone [From DILAUDID] AdvReac Intermediate rash, Verified 08/07/18 23:26 itching, disorientation Review of Systems Review of Systems All systems reviewed & are unremarkable except as noted in HPI and below Constitutional Denies chills, Denies fever(s), Denies headache(s), Denies lethargy and Denies weakness Eyes Denies blurry vision and Denies diplopia ENT Ears, Nose, Mouth, and Throat: Denies change in voice, Denies headache(s), Denies neck pain and Denies sore throat Cardiovascular Denies chest pain, Denies syncope, Denies irregular heart rhythm, Denies lightheadedness, Denies palpitations, Denies dyspnea, Denies dyspnea on exertion and Denies orthopnea Respiratory Denies cough, Denies dyspnea, Denies dyspnea on exertion and Denies wheezing Gastrointestinal Gastrointestinal: Denies abdominal pain, Denies change in bowel habits, Denies diarrhea, Denies nausea and Denies vomiting Musculoskeletal Denies back pain and Denies neck pain Integumentary/Breasts Denies pruritus, Denies erythema, Denies rash and Denies wounds Neurologic Denies syncope, Denies headache(s), Denies focal weakness and Denies weakness Psychiatric Reports as per HPI, Reports anxiety and Reports panic attacks Endocrine Denies palpitations Allergic/Immunologic Denies wheezing [facility] Family History Brother Age: 81 Sleep apnea Child Age: 59 GERD (gastroesophageal reflux disease) Child Age: 57 Anxiety Father Emphysema lung Grandfather Skin cancer Diabetes mellitus Hypertension Mother Hypertension Stroke Anxiety Sister Age: 61 Hyperthyroidism Grandmother No problems noted. Grandfather No problems noted. Grandmother Cancer Social History household members: spouse Smoking Status: Never smoker Exam Initial Vital Signs Initial Vital Signs: Vital Signs Temperature 98.6 F 08/07/18 23:26 Pulse Rate 89 08/07/18 23:26 Respiratory Rate 15 08/07/18 23:26 Blood Pressure 219/106 H 08/07/18 23:26 Pulse Oximetry 96 08/07/18 23:26 GENERAL: Very anxious elderly female alert and oriented x3 HEENT: Head atraumatic,EOMI, pupils reactive, face symmetric, neck is supple no JVD CARDIOVASCULAR: Regular rate and rhythm without murmurs, rubs or gallops. RESPIRATORY: Breath sounds equal bilaterally, no wheezes rales or rhonchi. ABDOMEN: Soft, nontender. Normoactive bowel sounds all 4 quadrants. No guarding or rebound. EXTREMITIES: Normal range of motion, no clubbing or edema. Neurovascularly intact NEUROLOGICAL: Alert and oriented x4.Normal gait and speech. Cranial nerves II through XII grossly intact. SKIN: Warm, dry, no laceration, no petechiae, no rashes or lesions. Course Orders Ordered: ED Orders 08/07/18 23:27 EKG-12 Lead Stat 08/07/18 23:59 Complete Blood Count AUTO DIFF Stat Comprehensive Metabolic Panel Stat Troponin & CK Cardiac Panel Stat Discontinued Medications Lorazepam (Ativan) 0.5 mg PO NOW ONE Stop: 08/08/18 00:53 Last Admin: 08/08/18 00:58 Dose: 0.5 mg Vital Signs - 8 hr 08/07/18 23:26 08/07/18 23:33 08/08/18 00:31 Temperature 98.6 F Pulse Rate 89 80 73 Respiratory Rate 15 Blood Pressure 219/106 H Blood Pressure [Left Arm] 174/79 H 185/80 H Pulse Oximetry 96 99 97 Medical Decision Making Lab Data Lab results reviewed: Yes I reviewed the patient's lab results. Result diagrams: 08/07/18 23:59 08/07/18 23:59 Lab Results 08/07/18 08/07/18 Range/Units 23:59 23:59 WBC 6.1 (4.5-11.0) X10^3/uL RBC 3.98 L (4.0-5.2) X10^6/uL Hgb 12.9 (12.0-16.0) g/dL Hct 37.9 (36-46) % MCV 95.3 (80-100) fL MCH 32.4 (26-34) PG MCHC 33.9 (30-36) % RDW 13.3 (11.6-14.8) % Plt Count 221 (150-400) X10^3/uL Neut % (Auto) 60.4 (50-75) % Lymph % (Auto) 22.1 L (25-40) % [place] % (Auto) 12.0 (3-14) % Eos % (Auto) 4.7 H (2-4) % Baso % (Auto) 0.8 (0-2) % Neut # (Auto) 3700 (4762-9362) /uL Sodium 142 (137-145) mmol/L Potassium 3.5 (3.4-5.1) mmol/L Chloride 105 (98-107) mmol/L Carbon Dioxide 26 (22-32) mmol/L BUN 23 H (7-17) mg/dL Creatinine 1.20 H (0.52-1.04) mg/dL Estimated GFR 43.4 L (>60) mL/min BUN/Creatinine Ratio 19.2 (6-22) Glucose 109 (80-110) mg/dL Calcium 9.5 (8.4-10.2) mg/dL Total Bilirubin 0.6 (0.2-1.3) mg/dL AST 43 H (14-36) IU/L ALT 32 (9-52) IU/L Alkaline Phosphatase 91 (38-126) U/L Total Creatine Kinase 66 (30-135) U/L CK-MB (CK-2) TNP CK-MB (CK-2) Rel Index TNP Troponin I < 0.012 (0.01-0.034) ng/mL Total Protein 7.4 (6.3-8.2) g/dL Albumin 4.0 (3.5-5.0) g/dL Globulin 3.4 (1.7-4.1) g/dL Albumin/Globulin Ratio 1.2 (1.0-2.8) ECG Data Attestation: I personally reviewed and interpreted this ECG as follows: Prior ECG tracings: available for review Interpretation: Normal sinus rhythm rate 70 a as needed interval 145 similar to previous EKG no ST changes or T-wave inversions MDM Narrative Medical decision making narrative: Patient's blood pressure has decreased some without any intervention. She brought in her wrist blood pressure cuff with her it does seem to be verified in the right. Recommend freight trucker about topical transdermal patches he is unable to take pills. He also recommended she taking her pills 1 and time. She says that she has been to numerous specialists GI and Cardiology. She overall is feeling little bit better and blood pressure has improved. Discharge Plan Departure Patient Disposition: Home Clinical Impression: Hypertension Discharge Date/Time: 08/08/18 01:08 Interventions: ED Discharge Assessment Last Done: 08/08/18 01:02 Instructions: DI for High Blood Pressure, DI for Anxiety -- Adult Activity Restrictions/Additional Instructions: *You have been diagnosed with hypertension, anxiety *What to do: Talk with freight trucker about changing medications to patches. They are very few blood pressure medications but there are some the due, in a patch *Continue to take medications as directed *Follow up with your primary care provider in 2-3 days *Return to ER if you should have headache, chest pain, or any new, worsening or concerning symptoms Prescriptions: No Action chlorthalidone 25 mg tablet 12.5 mg PO DAILY RF: 0 pantoprazole 20 mg tablet,delayed release (DR/EC) 20 mg PO BID RF: 0 cholecalciferol (vitamin D3) 2,000 unit capsule 2,000 unit PO DAILY RF: 0 losartan 100 mg tablet 100 mg PO DAILY RF: 0 fluticasone 50 mcg/actuation spray,suspension 1 spray NASAL BID PRN (Reason: allergy symptoms) Qty: 18.2 RF: 0 diphenhydramine HCl [Allergy (diphenhydramine)] 25 mg capsule 50 mg PO BEDTIME PRNRF: 0 buspirone 5 mg tablet 5 mg PO BID Qty: 60 RF: 1 isosorbide mononitrate 60 MG tablet extended release 24 hr 60 mg PO BID Qty: 180 RF: 0 potassium chloride 10 MEQ tablet extended release 10 meq PO BID Qty: 60 RF: 5 hydralazine 25 mg tablet 75 mg PO QDAY Qty: 0 RF: 0 atorvastatin 40 mg tablet 40 mg PO QPM Qty: 90 RF: 1 metoprolol tartrate 50 mg tablet 50 mg PO BID Qty: 180 RF: 0 tizanidine [Zanaflex] 4 mg capsule 4 mg PO TIDP PRN (Reason: muscle spasticity) Qty: 45 RF: 0 Referrals: Everett Chaves MD [Physician] - Pippa Calderon DO [Primary Care Provider] -
[2018-08-08] MEDS: LORazepam 0.5 MG TABLET PO (00:58)
== END 2018-08-08 01:08 | disposition home or self-care (01) ==
PROVIDERS: Emergency Provider Emergency Medicine; Family Provider Family Medicine; PCP Family Medicine
DX: I10 Essential (primary) hypertension (principal)
CPT/HCPCS: 36591; 80053; 82550; 82553; 84484; 85025; 93005; 99283; 99284

== ENCOUNTER 2018-08-09 15:44 | Emergency (ER) | payer MEDICARE, SELFPAY ==
[2018-08-09 16:10] VITALS: BP 174/97; PULSE 77; RESP 19; TEMP 36.9; O2SAT 99; BMI 25.7
[2018-08-09 17:09] VITALS: BP 201/85; PULSE 77; RESP 15; O2SAT 100
--- NOTE | 2018-08-09 17:21 | ED.ANXIETY ---
HPI - Anxiety General Chief Complaint: Anxiety Stated Complaint: states dangerously high blood pressure, nervous Time Seen by Provider: 08/09/18 16:58 Source: patient Mode of arrival: ambulatory Limitations: no limitations History of Present Illness HPI narrative: Patient is a 78-year-old female whose been seen here 2 times within the past week for high blood pressure and anxiety. Patient returns today for continued high blood pressure. It does appear that she is only occasionally taking her blood pressure medications. She is not having any chest pain or shortness of breath. She does state that she is having quite a bit of anxiety. She was discharged home with Ativan which she states did not improve any of her symptoms. She has not followed up with her primary care doctor. She returns today because this morning she took her blood pressure and the ?top number ?was greater than 200. Related Data Home Medications Medication Instructions Recorded Confirmed chlorthalidone 25 mg tablet 12.5 mg PO DAILY tab 04/15/18 04/15/18 cholecalciferol (vitamin D3) 2,000 2,000 unit PO DAILY 04/15/18 07/31/18 unit capsule hydralazine 25 mg tablet 75 mg PO QDAY #0 tab 04/15/18 04/15/18 losartan 100 mg tablet 100 mg PO DAILY 04/15/18 04/15/18 pantoprazole 20 mg tablet,delayed 20 mg PO BID tab 04/15/18 04/15/18 release diphenhydramine 25 mg capsule 50 mg PO BEDTIME PRN 07/31/18 Previous Rx's Medication Instructions Recorded isosorbide mononitrate 60 mg PO BID #180 tab 10/31/17 potassium chloride 10 meq PO BID #60 tab 11/27/17 fluticasone 50 mcg/actuation nasal 1 spray NASAL BID PRN #18.2 gram 04/15/18 spray,suspension atorvastatin 40 mg tablet 40 mg PO QPM #90 tab 04/21/18 metoprolol tartrate 50 mg PO BID #180 tab 06/17/18 tizanidine 4 mg capsule 4 mg PO TIDP PRN #45 cap 06/25/18 buspirone 5 mg tablet 5 mg PO BID #60 tab 07/31/18 Allergies Allergy/AdvReac Type Severity Reaction Status Date / Time morphine [MORPHINE] Allergy Intermediate rash, Verified 08/07/18 23:26 itching, disorientation oxycodone [OXYCODONE] Allergy Intermediate rash, Verified 08/07/18 23:26 itching, disorientation hydromorphone [From DILAUDID] AdvReac Intermediate rash, Verified 08/07/18 23:26 itching, disorientation Review of Systems Constitutional Denies fatigue, Denies fever(s), Denies headache(s) and Denies lethargy ENT Ears, Nose, Mouth, and Throat: Denies headache(s) Cardiovascular Denies chest pain, Denies edema, Denies leg edema and Denies dyspnea Respiratory Denies cough and Denies dyspnea Gastrointestinal Gastrointestinal: Denies abdominal pain, Denies nausea and Denies vomiting Musculoskeletal Denies back pain, Denies myalgias, Denies arthralgias, Denies muscle weakness, Denies numbness and Denies tingling Integumentary/Breasts Denies lesions and Denies rash Neurologic Denies headache(s), Denies numbness and Denies tingling Psychiatric Reports anxiety Endocrine Denies fatigue Hematologic/Lymphatic Denies easy bleeding and Denies easy bruising Comments: Not on anticoagulation [facility] Social History household members: spouse Smoking Status: Never smoker Exam Initial Vital Signs Initial Vital Signs: Vital Signs Temperature 98.4 F 08/09/18 16:10 Pulse Rate 77 08/09/18 16:10 Respiratory Rate 19 08/09/18 16:10 Blood Pressure 174/97 H 08/09/18 16:10 Pulse Oximetry 99 08/09/18 16:10 Const General: cooperative, healthy appearing, well developed and well groomed Orientation: alert, awake and oriented x3 HENMT Head: normal to inspection and normocephalic Resp Effort & Inspection: normal respiratory effort Cardio Rate: regular rate GI Inspection: non-distended Skin Rashes: no rashes Neuro General: alert, awake and oriented x3 Extrem General: capillary refill normal Psych Appearance: grossly normal and well kempt Mood: anxious mood Course Orders Ordered: Discontinued Medications Lorazepam (Ativan) 1 mg PO NOW ONE Stop: 08/09/18 17:23 Last Admin: 08/09/18 17:28 Dose: 1 mg Vital Signs - 8 hr 08/09/18 16:10 08/09/18 17:09 08/09/18 18:07 Temperature 98.4 F Pulse Rate 77 77 75 Respiratory Rate 19 15 14 Blood Pressure 174/97 H 198/94 H Blood Pressure [Left Arm] 201/85 H Pulse Oximetry 99 100 98 [facility] - Anxiety Medical Records Attestation: I reviewed the patient's medical records. [facility] Narrative Medical decision making narrative: Patient is not having chest pain not having shortness of breath not having headache. She does have blood pressure medications at home. Upon further evaluation it does appear that the patient has been trying to take all of her medication in 1 mouthful. She states that if she does not tried to do it this way that it ?takes me all day ?to take all of her medication. I informed her that this is probably not the best way to take her medication because of her prior Renato fundoplication that could be what is causing all of her vomiting. She states that she takes a hit off of a CBD vapor which allows her to have less nausea. She states that this also brings down her blood pressure so she has only occasionally been taking it for the past couple days. I did inform her that it is most appropriate for her to be taking her blood pressure medications as directed. I also went through her medications with her and pointed out the medications that she can cut with the pill cutter which she states she has at home which may help with her taking the pills. She was also given Ativan here in the emergency department which did improve her symptoms quite a bit. Patient has no signs of end-organ issues because of the high blood pressure. No physical exam findings consistent with a CVA or coronary artery disease. Patient was given return precautions. She was instructed she needed follow-up with her primary doctor. She expressed understanding and agreement with plan. Discharge Plan Departure Patient Disposition: Home Clinical Impression: Hypertension, Anxiety Interventions: ED Discharge Assessment Last Done: 08/09/18 18:07 Instructions: Anxiety Disorders, Essential Hypertension, Anxiety and Panic Attacks (Alternative Therapy) Activity Restrictions/Additional Instructions: I do recommend that you take your medications as directed. You can cut the pills that I pointed out to make them smaller which may help you swallow them. I also recommend that you take the pills individually and not in 1 mouthful. This may help with being able to tolerate the pills. You were discharged home with Ativan the last time your here. You can take a total of 1 mg of this medication as needed for any anxiety. You do need to follow-up with your primary care doctor regarding your blood pressure and also your anxiety. Return to the emergency department for any new or worsening symptoms Prescriptions: No Action chlorthalidone 25 mg tablet 12.5 mg PO DAILY RF: 0 pantoprazole 20 mg tablet,delayed release (DR/EC) 20 mg PO BID RF: 0 cholecalciferol (vitamin D3) 2,000 unit capsule 2,000 unit PO DAILY RF: 0 losartan 100 mg tablet 100 mg PO DAILY RF: 0 fluticasone 50 mcg/actuation spray,suspension 1 spray NASAL BID PRN (Reason: allergy symptoms) Qty: 18.2 RF: 0 diphenhydramine HCl [Allergy (diphenhydramine)] 25 mg capsule 50 mg PO BEDTIME PRNRF: 0 buspirone 5 mg tablet 5 mg PO BID Qty: 60 RF: 1 isosorbide mononitrate 60 MG tablet extended release 24 hr 60 mg PO BID Qty: 180 RF: 0 potassium chloride 10 MEQ tablet extended release 10 meq PO BID Qty: 60 RF: 5 hydralazine 25 mg tablet 75 mg PO QDAY Qty: 0 RF: 0 atorvastatin 40 mg tablet 40 mg PO QPM Qty: 90 RF: 1 metoprolol tartrate 50 mg tablet 50 mg PO BID Qty: 180 RF: 0 tizanidine [Zanaflex] 4 mg capsule 4 mg PO TIDP PRN (Reason: muscle spasticity) Qty: 45 RF: 0
[2018-08-09] MEDS: LORazepam 1 MG TABLET PO (17:28)
[2018-08-09 18:07] VITALS: BP 198/94; PULSE 75; RESP 14; O2SAT 98
== END 2018-08-09 18:47 | disposition home or self-care (01) ==
PROVIDERS: Emergency Provider Emergency Medicine; PCP Family Medicine
DX: F41.9 Anxiety disorder, unspecified (principal); I10 Essential (primary) hypertension
CPT/HCPCS: 99282; 99283

== ENCOUNTER → 2018-08-14 14:18 | Outpatient (CLI) | payer MEDICARE, SELFPAY ==
[2018-08-14 16:42] LABS: Thyroid Stimulating Hormone 1.56 uIU/mL (0.47-4.68)
[2018-08-18 22:31] LABS: Aldosterone/Renin Activity Rat 56.4 Ratio (0.9-28.9); Plama Renin, LC/MS/MS 0.39 ng/mL/h (0.25-5.82)
== END ==
PROVIDERS: Family Provider Family Medicine; PCP Family Medicine; Visit Provider Internal Medicine Cardiovascular Disease
DX: I10 Essential (primary) hypertension (principal)
CPT/HCPCS: 36415; 82088; 83835; 84244; 84443

== ENCOUNTER → 2018-08-16 11:52 | Outpatient (CLI) | payer MEDICARE, SELFPAY ==
[2018-08-23 14:44] LABS: Creatinine, 24 Urine 0.57 g/24 h (0.50-2.15); Total Catecholamines 24 mcg/24 h (26-121); Total Volume: 450 mL
== END ==
PROVIDERS: Family Provider Family Medicine; PCP Family Medicine; Visit Provider Internal Medicine Cardiovascular Disease
DX: N30.00 Acute cystitis without hematuria (principal)
CPT/HCPCS: 82384

== ENCOUNTER → 2018-08-18 12:25 | Outpatient (CLI) | payer MEDICARE, SELFPAY ==
[2018-08-18 13:19] LABS: Add Manual Diff / Slide Review NO; Basophils Percent Auto 0.6 % (0-2); Eosinophils Percent Auto 3.6 % (2-4); Hemoglobin 13.6 g/dL (12.0-16.0); Lymphocytes Percent Auto 19.6 % (25-40); Mean Corpuscular HGB Conc 34.1 % (30-36); Mean Corpuscular Hemoglobin 32.9 PG (26-34); Mean Corpuscular Volume 96.5 fL (80-100); Monocytes Percent Auto 10.2 % (3-14); Neutrophils Absolute Auto 4500 /uL (1500-7000); Red Blood Cell Count 4.14 X10^6/uL (4.0-5.2); Red Cell Distribution Width 12.9 % (11.6-14.8); White Blood Cell Count 6.8 X10^3/uL (4.5-11.0)
[2018-08-18 13:33] LABS: Appearance Urine UA CLEAR; Bilirubin Urine UA NEGATIVE (NEGATIVE); Color Urine UA YELLOW; Glucose Urine UA NEGATIVE (Negative); Ketones Urine UA NEGATIVE (NEGATIVE); Leukocyte Esterase Urine UA NEGATIVE (NEGATIVE); Nitrite Urine UA NEGATIVE (Negative); Occult Blood Urine UA NEGATIVE (Negative); Protein Urine UA 1+ (Negative); Urobilinogen Urine UA 0.2 E.U./dL (0.2)
[2018-08-18 13:51] LABS: Alanine Aminotransferase 30 IU/L (9-52); Albumin 4.3 g/dL (3.5-5.0); Albumin Globulin Ratio 1.3 (1.0-2.8); Alkaline Phosphatase 107 U/L (38-126); Aspartate Aminotransferase 28 IU/L (14-36); BUN Creatinine Ratio 24.5 (6-22); Bilirubin Total 0.5 mg/dL (0.2-1.3); Blood Urea Nitrogen 27 mg/dL (7-17); Calcium 9.7 mg/dL (8.4-10.2); Carbon Dioxide 25 mmol/L (22-32); Chloride 104 mmol/L (98-107); Globulin 3.2 g/dL (1.7-4.1); Glucose 92 mg/dL (80-110); HEMOLYSIS < 15 (0-50); Potassium 3.8 mmol/L (3.4-5.1); Sodium 141 mmol/L (137-145); Total Protein 7.5 g/dL (6.3-8.2)
[2018-08-18 14:01] LABS: Platelet Count 219 X10^3/uL (150-400)
[2018-08-18 14:03] LABS: Free T3, Triiodothyronine Free 3.03 pg/mL (2.77-5.27); Free T4, Direct Thyroxine 1.08 ng/dL (0.78-2.19)
[2018-08-18 14:17] LABS: Thyroid Stimulating Hormone 1.68 uIU/mL (0.47-4.68)
[2018-08-22 13:17] LABS: ANA Screen NEGATIVE (Negative); DNA Antibody Crithidia IFA NEGATIVE (Negative); Rheumatoid Factor <14 IU/mL; Sjogren Antiboday SS-A <1.0 NEG AI (<1.0 NEGATIVE); Sjogren Antiboday SS-B <1.0 NEG AI (<1.0 NEGATIVE); Sm Antibody <1.0 NEG AI (<1.0 NEGATIVE); Sm/RNP Antibody <1.0 NEG AI (<1.0 NEGATIVE)
== END ==
PROVIDERS: Family Provider Family Medicine; PCP Family Medicine; Visit Provider Family Medicine
DX: E78.5 Hyperlipidemia, unspecified (principal); I10 Essential (primary) hypertension; M85.80 Other specified disorders of bone density and structure, unspecified site; N18.3 Chronic kidney disease, stage 3 (moderate); Z13.29 Encounter for screening for other suspected endocrine disorder; L65.9 Nonscarring hair loss, unspecified; Z87.440 Personal history of urinary (tract) infections
CPT/HCPCS: 36415; 80053; 81003; 84439; 84443; 84481; 85025; 86038; 86430; 87086

== ENCOUNTER → 2018-09-16 13:41 | Outpatient (CLI) | payer MEDICARE, SELFPAY ==
--- NOTE | 2018-09-16 | DI.CT.S_ITS ---
PROCEDURE: CT KIDNEY URETER BLADDER (KUB) INDICATIONS: RECURRENT UTI,FATIGUE,OSTEOPENIA TECHNIQUE: Noncontrast 5 mm thick sections acquired from the diaphragms to the symphysis. 5 mm thick coronal and sagittal reformats were then performed. For radiation dose reduction, the following was used: automated exposure control, adjustment of mA and/or kV according to patient size. COMPARISON: [facility], CT, KIDNEY/ URETER/BLADDER, 11/13/2010, 13:20. FINDINGS: Image quality: Excellent. Lung bases: Lung bases are clear. Heart size is normal. Urinary system: Both kidneys are mildly atrophic, left greater than right. No kidney stones. No hydronephrosis or perinephric fat stranding. Both ureters appear non-dilated throughout their expected courses. Bladder wall thickness is normal; no calcified bladder stones. Other solid organs: Liver is normal in size. Gallbladder is unremarkable. Pancreas is normal in contours. Spleen is normal in size. No adrenal nodules. Peritoneum and bowel: Unenhanced bowel loops demonstrate normal wall thickness and caliber. No free fluid or air. Hiatal hernia. Minimal scattered diverticula are present. Nodes and vessels: No retroperitoneal or mesenteric adenopathy by size criteria. Aorta and inferior vena cava are normal in caliber. Abdominal wall: No ventral hernias. Bilateral breast implants are noted. Pelvis: No free pelvic fluid. No inguinal hernias or adenopathy. Bones: No suspicious bony lesions. No vertebral body compression fractures. IMPRESSION: 1. No nephro or ureterolithiasis. No bladder calculi. 2. Minimal colonic diverticula. Dictated by: Marielle Cui M.D. on 09/16/2018 at 14:31 Approved by: Marielle Cui M.D. on 09/16/2018 at 14:38
[2018-09-16 15:24] LABS: HEMOLYSIS < 15 (0-50); Iron 124 ug/dL (37-170)
[2018-09-16 15:28] LABS: Uric Acid 7.5 mg/dL (2.5-6.2)
[2018-09-16 15:34] LABS: Percent Iron Saturation 37 % (15-50); Total Iron Binding Capacity 338 ug/dL (265-497); Transferrin 276 mg/dL (206-381)
[2018-09-16 15:46] LABS: Vitamin D 25 Hydroxy (D3) 52.2 ng/mL (30.0-100.0)
[2018-09-16 15:56] LABS: Ferritin 36.3 ng/mL (11.1-264)
[2018-09-16 16:10] LABS: Vitamin B12 > 1000 pg/mL (239-931)
== END ==
PROVIDERS: Family Provider Specialist; PCP Family Medicine; Visit Provider Physician Assistant
DX: N39.0 Urinary tract infection, site not specified (principal); R53.83 Other fatigue; M85.851 Other specified disorders of bone density and structure, right thigh; E28.39 Other primary ovarian failure; M25.50 Pain in unspecified joint; Z78.0 Asymptomatic menopausal state; Z90.722 Acquired absence of ovaries, bilateral
CPT/HCPCS: 36415; 74176; 77080; 82306; 82607; 82728; 83540; 83550; 84550

== ENCOUNTER → 2018-10-14 14:30 | Outpatient (CLI) | payer MEDICARE, SELFPAY ==
[2018-10-14 15:56] LABS: BUN Creatinine Ratio 21.8 (6-22); Blood Urea Nitrogen 24 mg/dL (7-17); Calcium 10.2 mg/dL (8.4-10.2); Carbon Dioxide 27 mmol/L (22-32); Chloride 104 mmol/L (98-107); Glucose 89 mg/dL (80-110); HEMOLYSIS < 15 (0-50); Potassium 3.8 mmol/L (3.4-5.1); Sodium 143 mmol/L (137-145)
== END ==
PROVIDERS: Family Provider Specialist; PCP Family Medicine; Visit Provider Internal Medicine Cardiovascular Disease
DX: I10 Essential (primary) hypertension (principal)
CPT/HCPCS: 36415; 80048

== ENCOUNTER → 2018-11-04 13:34 | Outpatient (CLI) | payer MEDICARE, SELFPAY ==
[2018-11-04 14:58] LABS: Hematocrit 39.9 % (36-46); Hemoglobin 13.9 g/dL (12.0-16.0)
[2018-11-04 15:15] LABS: B Type Natriuretic Peptide 124 (<100)
[2018-11-04 15:44] LABS: BUN Creatinine Ratio 20.9 (6-22); Blood Urea Nitrogen 23 mg/dL (7-17); Calcium 9.9 mg/dL (8.4-10.2); Carbon Dioxide 25 mmol/L (22-32); Chloride 105 mmol/L (98-107); Glucose 82 mg/dL (80-110); HEMOLYSIS < 15 (0-50); Potassium 4.4 mmol/L (3.4-5.1); Sodium 142 mmol/L (137-145)
[2018-11-04 17:02] LABS: Creatinine Urine Random 54.9 mg/dL; Protein (Total) Urine Random 48 mg/dL (0-12); Protein Creatinine Ratio Urine 0.87 GRAM/24H
[2018-11-06 16:39] LABS: Parathyroid Hormone Int 146 pg/mL (14-64)
== END ==
PROVIDERS: Family Provider Physician Assistant; PCP Family Medicine; Visit Provider Student in an Organized Health Care Education/Training Program
DX: N05.9 Unspecified nephritic syndrome with unspecified morphologic changes (principal); I50.32 Chronic diastolic (congestive) heart failure; D64.9 Anemia, unspecified; R80.9 Proteinuria, unspecified; N25.81 Secondary hyperparathyroidism of renal origin
CPT/HCPCS: 36415; 80048; 82570; 83880; 83970; 84156; 85014; 85018

== ENCOUNTER → 2018-12-08 13:52 | Outpatient (CLI) | payer MEDICARE, SELFPAY ==
[2018-12-08 15:19] LABS: B Type Natriuretic Peptide 141 (<100)
[2018-12-08 17:15] LABS: BUN Creatinine Ratio 19.1 (6-22); Blood Urea Nitrogen 21 mg/dL (7-17); Calcium 9.3 mg/dL (8.4-10.2); Carbon Dioxide 23 mmol/L (22-32); Chloride 107 mmol/L (98-107); Glucose 117 mg/dL (80-110); HEMOLYSIS < 15 (0-50); Potassium 3.5 mmol/L (3.4-5.1); Sodium 141 mmol/L (137-145)
== END ==
PROVIDERS: Family Provider Family Medicine; PCP Family Medicine; Visit Provider Student in an Organized Health Care Education/Training Program
DX: N05.9 Unspecified nephritic syndrome with unspecified morphologic changes (principal); I50.32 Chronic diastolic (congestive) heart failure
CPT/HCPCS: 36415; 80048; 83880

== ENCOUNTER 2019-06-24 08:53 | Day surgery (SDC) | payer MEDICARE, SELFPAY ==
--- NOTE | 2019-06-19 18:38 | PM.PREOP ---
Pre-operative Note Interval Note History & Physical reviewed/Exam performed by Physician: Yes Changes to H&P: No
--- NOTE | 2019-06-24 07:43 | PM.OP.1 ---
Operative Date/Time/Diagnoses Date of procedure: 06/24/19 Time of procedure: 11:45 Procedure & Clinicians Procedure: Preoperative diagnoses: 1. 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 Renal insufficiency. 4. Anxiety Postoperative diagnoses: 1. Bilateral upper lid dermatochalasis treated with blepharoplasty 2. Status post ectropion repair 3. Punctal malrotation with punctal stenosis. 4. Benign lesion right lower lid. Procedure: Bilateral upper blepharoplasty for functional symptoms. Bilateral lower lid functional ectropion repair. Surgeon: Carmen Mcfarland MD Complications: none Specimen: None Blood loss: Less than 3 mL Anesthesia: Local infiltration with monitored standby. Indications: Bilateral upper lids obstructing superior vision. Preoperative external photographs taken and loss of vision to within 2 mm of marginal light reflex. Functional surgery. Bilateral lower lid laxity with exposure symptoms and malrotated puncta. Patient presents with excessive irritation and tearing from exposure due to bilateral lower lid laxity malposition the of the lacrimal puncta which were also closed. The patient has failed conservative measures including lubrication and antibiotic ointment and desires surgery to improve these symptoms. Procedure: In the preoperative holding area the amount skin and subcutaneous tissue to be removed was marked with indelible ink. The contours were carefully checked for symmetry and planned procedure discussed with the patient. The patient was taken to the operating room. IV sedation was given. Proparacaine drops were placed in both eyes for comfort. Local infiltration of anesthetic 2.5 cc into each upper lid and lateral canthus bilaterally, consisting of 1% xylocaine with epinephrine, normal saline and 1 cc hyluronidase was placed. This was then supplemented with full strength 2% xylocaine with epinephrine, 0.5% bupivacaine, and 1 cc hyalurondase. The face was prepped in an open manner. Attention was placed to the right upper lid. Using the previous padilla a number 15. [employer]Simple-Reid blade was used to incise a skin muscle flap. The flap was lifted and removed. Cautery was applied as needed. Contouring of the muscle belly was also performed. Exploration of the nasal and preoperneurotic fat pads were performed removal and contouring with hemostat and scissors as well as cautery were performed. The lid was then closed with running and interrupted 6 0 Vicryl sutures. A small incidental inferior benign lesion was removed from the middle of the right lower lid it was a papillomatous type lesion. Attention was placed to the right lower lid. A punctal dilator was used to enlarge the punctum. It was then probed to the nose. Tenotomy scissors were used to make a 3 snip procedure to enlarge the punctum permanently. Attention was placed to the lateral canthus. A 15. Bard-Reid blade was used to make an incision for 1 cm. The periosteum was exposed. Cautery was used as needed. The inferior canthal tendon was lysed with scissors. A tarsal strip was formed with clearance of the anterior and posterior lamella and any exposed lashes. Minimal shortening was performed. The strip was then transected with 5.0 Mersilene type suture which was placed double-armed through the periosteum and tied with multiple knots at the orbital rim. The outer tarsus and lid was then closed with 6 0 interrupted sutures. The procedure was repeated on the left side in identical fashion. There was minimal bleeding. The patient returned to the recovery room in good condition. Sutures will be removed in the office in approximately 10 days. Same procedure was repeated for the left upper lid and lower lid. The Betadine was removed. Maxitrol ointment was placed to suture line. She returned to recovery room in stable condition. Instructions for postoperative cold packs were reviewed. Carmen Mcfarland MD.
[2019-06-24 09:58] VITALS: BP 144/68; PULSE 68; RESP 18; TEMP 36.7; O2SAT 98
[2019-06-24] MEDS: NEOMYCIN/POLY/DEX OPHTH OINT 1 APPLIC EYE-BOTH (12:26)
[2019-06-24] MEDS: PROPARACAINE 0.5% OPHTH SOL 2 DROPS EYE-BOTH (12:27)
[2019-06-24] MEDS: LIDOCAINE 1% W/EPI 3 ML, SODIUM CHLORIDE 0.9% 2 ML, HYALURONIDASE 150 UNIT INJ (12:28)
[2019-06-24] MEDS: LIDOCAINE 2% W/EPI 3 ML, BUPIVACAINE 0.5% (PF) 2 ML, HYALURONIDASE 150 UNIT INJ (12:30)
[2019-06-24 14:03] VITALS: BP 125/63; PULSE 99; RESP 16; TEMP 36.4; O2SAT 99
[2019-06-24] MEDS: ACETAMINOPHEN 325 MG TABLET 650 MG PO (14:19)
== END 2019-06-24 14:31 | disposition home or self-care (01) ==
LOC: OR 08:55
PROVIDERS: Family Provider Family Medicine; PCP Family Medicine; Visit Provider Ophthalmology
PROC: (CPT 67917; principal; 2019-06-24 10:45)
DX: H02.834 Dermatochalasis of left upper eyelid (principal); H02.831 Dermatochalasis of right upper eyelid; H02.102 Unspecified ectropion of right lower eyelid; H02.105 Unspecified ectropion of left lower eyelid; F41.9 Anxiety disorder, unspecified; H02.89 Other specified disorders of eyelid; D23.112 Other benign neoplasm of skin of right lower eyelid, including canthus
CPT/HCPCS: 67917; 15823; J2250; J2704; J3010; J3470